=== PATIENT | female | born 1940 | race Caucasian/White ===

== ENCOUNTER → 2018-07-27 10:35 | Outpatient (CLI) | payer MEDICARE, SELFPAY ==
--- NOTE | 2018-07-27 10:39 | BI_ITS ---
MAMMOGRAPHY - BILATERAL SCREENING REASON FOR EXAM: Female, 77 years old. Routine annual screening examination. PERTINENT HISTORY: Non-contributory. Remote right excisional breast biopsy. TECHNIQUE: Digital bilateral breast imani (3D mammographic acquisition) in the CC and MLO projections. 2-D mediolateral oblique (MLO) and craniocaudad (CC) views of both breasts were obtained. CAD: Full Field Digital Mammography with Computer Added Detection was performed. COMPARISON: Comparison is made with prior arthritic examination dated September 01, 2015. FINDINGS: Breast Composition: The breasts are almost entirely fatty. There are no dominant masses or suspicious calcifications. No other significant abnormalities are identified. There has been no significant change since the prior study. BI/SCREENING MAMM (CAD), BILAT IMPRESSION: Stable bilateral screening mammogram. Yearly follow-up mammogram recommended. (A) ASSESSMENT CATEGORY: BIRADS Category 1: Negative. A letter regarding these results will be sent to the patient by the facility within 30 days. Approximately 10% of breast cancers are not detected by mammography. A normal mammogram should not delay biopsy of a clinically suspicious abnormality. [id number] Electronically Signed: Damian Tracy MD at 8:11 EDT Tel [phone], Service support ,
== END ==
PROVIDERS: Family Provider Family Medicine; PCP Family Medicine; Visit Provider Family Medicine
DX: Z12.31 Encounter for screening mammogram for malignant neoplasm of breast (principal)
CPT/HCPCS: 77063; 77067

== ENCOUNTER 2018-10-24 11:00 | Outpatient (RCR) | payer MEDICARE, SELFPAY ==
--- NOTE | 2018-09-20 10:57 | HP.PTEVAL ---
Patient's Visit Information ZIGGY DE SOUZA is a 77 year old F referred to Physical Therapy by LOLIS COOK with a diagnosis of L45 SPONDYLOLISTHESIS. 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 Date of Evaluation: 09/20/18 Physical Therapist: Vernell Austin - Visit Plan Frequency: 2-3x /Week Duration: 4-6 Weeks Plan: AQUATIC THERAPY FOR PAIN RELEIF, POSTURE CORRECTION/STRENGTHENING, INSTRUCTION IN APPROPRIATE BODY MECHANICS AND ACTIVITY MODIFICATIONS. DLS STARTING WITH A NEUTRAL SPINE PROGRESSING ROM TOLERATED. TANVIR LE ROM, STRETCHING AND STRENGTHENING. HEP INSTRUCTION. - Subjective Subjective: Work/Leisure: RETIRED. [employer]. LIKES TO READ. Disability: NO. Present symptoms: CENTRAL LOW BACK PAIN. TANVIR THIGH PAIN. Present since: YEARS. PROGRESSIVELY INCREASING PAIN SINCE MOVING TO [employer] ABOUT 3 YEARS AGO AND RETIRED AT SAME TIME. Pain Scale: WORSE 8/10, LEAST 0/10. Currently: 0/10. Commenced as a result of: NO APPARENT REASON. Symptoms at onset: LOW BACK. Worse: WALKING, STANDING, HOUSEWORK, LAUNDRY. Better: SITTING, LYING DOWN, MOTRIN. Disturbed sleep: YES. Previous history/Previous treatment: A LITTLE BIT OF PHYSICAL THERAPY GREATER THAN 10 YEARS AGO - HEAT AND ELECTRICAL STIM - HELPED. NO BACK SURGERY. NO RAINA'S. NO CHIROPRACTOR. Coughing/sneezing/straining: NO. Gait: TENDENCY TO WALK FAST BUT THAT HURTS. DISTANCE LIMITED. LEFT KNEE CAUSES LIMP MORE THAN BACK. Difficulty initiating urinatin: NO. Accidents: NO. Unexplained weight loss: NO. Imaging: RECENT LUMBAR X-RAYS SHOWED 2 VERTEBRAE THAT WERE SEPERATED, SPINAL STENOSIS AND OSTEOPOROSIS PER PATIENT REPORT. PMH: HTN, METOBOLIC SYNDROME, DEPRESSION. LEFT KNEE PAIN - CORTISONE SHOT 3 MONTHS AGO. SMOKER - 1/2 TO 1 PACK A DAY. Recent major surgery: GALLBLADDER, SX FOR OBSTRUCTED BOWEL AND HERNIA 2013. PLOF (Prior Level of Function): PATIENT REPORTS HER ABILITY TO WALK HAS DECREASED ABOUT 50% OVER THE LAST 6 TO 12 MONTHS. USE TO BE ABLE TO GET AROUND TO GO TO [employer] MUCH BETTER A YEAR AGO. DIFFICULTY STANDING TO PUT CLOTHES IN CLOSET NOW AND CAN ONLY DO A FEW AT A TIME. OTHER: PATIENT REPORTS SHE IS HERE BECAUSE HER INSURANCE REQUIRES PHYSICAL THERAPY BEFORE THEY WILL APPROVE AN MRI. OTHER: PATIENT REPORTS THE [facility] TOLD HER SHE IS PROBABLY GOING TO NEED AN MRI AND FUSION BUT SHE HAS TO DO PT FIRST. REPORTS SHE HAS AN EX CHAIR AT HOME WITH ARM AND LEG EXERCISES BUT SHE DOESN'T USE IT. - Objective Sitting/Standing Posture: POOR. SLOUCHED POSTURE. FORWARD HEAD. ROUNDED SHOULDERS. Lordosis: REDUCED. Active Correction of posture: WORSE. Other Observations: THIS PATIENT AMBULATES INDEP'LY INTO PT WITHOUT ANY ASSISTIVE DEVICES NEEDING TO SIT DOWN AND REST AFTER APPROX 100 FEET X 2. VERY SOB. Motor deficit: TANVIR LE'S 4/5 WITH MMT'ING WITHIN AVAILABLE ROM. PATIENT IS ABLE TO TOE WALK BUT NOT HEEL WALK. Sensory deficit: TANVIR LE LIGHT TOUCH SENSATION IS INTACT AND SYMMETRICAL. ROM deficit: TIGHT TANVIR GASTROC SOLEUS COMPLEX'S. RIGHT KNEE ROM IN SUPINE IWTH A HEEL SLIDE -15 DEG TO 110 DEG FLEX. LEFT -18 DEG EXT TO 110 DEG FLEX. Reflexes: TANVIR LE'S 2/3. Dural Signs: NEG. Lumbar mvmt loss: flex - MIN. ext - APPEARS TO BE THEODORE DUE TO BALANCE AND TESTING LIITED DUE TO CONTRAINDICATION. R SG - THEODORE. L SG - THEODORE. Core strength: POOR. Palpation: NO ACUTE TENDERNESS WITH PALPATION OF THORACIC, LUMBAR, SACRUM, BUTTOCK OR LATERAL HIP REGIONS. OTHER: PATIENT LOST HER BALANCE SEVERAL TIMES DURING SESSION BUT ABLE TO REGAIN BALANCE INDEP'LY. - Goals Goal 1:: DECREASE C/O LOW BACK AND TANVIR LE SX'S. Goal Time Frame: 4-6 Weeks Goal 2:: IMPROVE PERSONAL CARE, LIFTING, WALKING, STANDING, SLEEP, SOCIAL LIFE, AND HOMEMAKING FUNCTION Goal Time Frame: 4-6 Weeks Goal 3:: INSTRUCT IN PROPHYLAXIS Goal Time Frame: 4-6 Weeks - Rehabilitation Potential Rehabilitation Potential: Fair - Anticipated Interventions Patient/Client Instruction: Educate patient on: Condition, Plan of Care, Risk Factors, Benefits of Fitness Program For the Purpose of:: To improve self management Therapeutic Exercise to Include: Strength training, Body mechanics, Postural training, Flexibilty training, Gait and locomotor training, In an aquatic setting, Passive ROM, Dynamic Lumbar Stabilization For the Purpose of:: To decrease pain, To increase ROM, To improve muscle performance and motor function, To increase tolerance to activity/condition/position, To improve performance and independence with ADL's, To improve ability of physical actions for home/community/work/leisure, To improve gait and locomotor functions Thank you for the opportunity to evaluate your patient. For Medicare and Medicare HMO plans, please review the plan of care and approve it. It will need to be FAXED BACK to us at [phone] for Medicare purposes. Please let me know if there are questions or concerns regarding this plan of care. Physician Signature: Date:
--- NOTE | 2018-10-24 11:57 | HP.PTDCSUM_ITS ---
HP - PT D/C Summary It has been my pleasure to treat ZIGGY DE SOUZA under orders from LOLIS COOK, for the diagnosis of L45 SPONDYLOLISTHESIS. 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 for a total of 7 visit(s). Discharge Date: 10/24/18 Please see the following information for a summary of their discharge status. - Subjective Subjective: PATIENT REPORTS SHE GOT SICK OVER THE WEEKEND WITH SORE THROAT AND FEVER. FEVER SEEMS TO BE GONE AND STARTING TO FEEL BETTER THIS MORNING. PATIENT REPORTS SHE IS SURPRISED SHE IS DOING THIS MUCH BETTER. SHE REPORTS SHE CERTAINLY DID NOT EXPECT TO HAVE THIS MUCH IMPROVEMENT. PATIENT REPORTS SHE IS THRILLED SHE WAS ABLE TO WALK ALL THE WAY BACK WITHOUT STOPPING TODAY. SHE ALSO REPORTS SHE HAS MORE STRENGTH IN HER ARMS AND LEGS ENABLING HER TO STAND AT THE STOVE LONGER AND STRAIGHTER. STATES SHE DOESN'T HAVE TO STOP AND LEAN OVER TO GIVE HER BACK A REST NEAR MUCH. PATIENT REPROTS SHE REALLY DOES NOT WANT TO CONTINUE PT AT THIS TIME DUE TO THE BUSINESS OF OCTOBER (MY SCHEDULE LOOKS CRAZY0 AND UNTIL SHE SEES HER DOCTOR AGAIN AND CAN GET AN MRI AND KNOW WHAT ALL OF HER OPTIONS ARE. SHE REPORTS SHE LIKED THE WATER EX'S WHEN SHE DIDN'T OVER-DO-IT AND SHE IS GOING TO JOIN [employer] AT THE FIRST OF THE YEAR. - Pain LOW BACK Pain Intensity (Out of 10): 5 LE'S Pain Intensity (Out of 10): 3 - Overall Improvement % Improvement: 40 - Objective Objective/Function: GOOD PROGRESS TOWARD ALL GOALS. PATIENT IS A GOOD CANDIDATE TO CONTINUE PT BASED ON PROGRESS MADE AND ROOM FOR FUTHER IMPROVEMENT BUT SHE IS DECLINING AT THIS TIME DUE TO HER SCHEDULE. SHE IS DEMONSTRATING IMPROVED GAIT, IMPROVED BALANCE AND IMPROVED ROM AND STRENGTH IN HER LE'S. POOR STRENGTH IS STILL POOR. UPON EXAM: THIS PATIENT AMBULATES INDEP'LY INTO PT WITH A STRAIGHT CANE X > 300 FEET WITH MILD SOB BUT NO REST PERIODS. Motor deficit: TANVIR LE'S 4- 5/5 WITH MMT'ING WITHIN AVAILABLE ROM. PATIENT IS ABLE TO TOE WALK AND EVEN HEEL WALK TODAY WITHOUT UE ASSIST. Sensory deficit: TANVIR LE LIGHT TOUCH SENSATION IS INTACT AND SYMMETRICAL. ROM deficit: TIGHT TANVIR GASTROC SOLEUS COMPLEX'S. RIGHT KNEE ROM IN SUPINE WITH A HEEL SLIDE = FULL EXT TO 119 DEG FLEX. LEFT FULL EXT TO 112 DEG FLEX. Reflexes: TANVIR LE'S 2/3. Dural Signs: NEG. Lumbar mvmt loss: flex - MIN. ext - NT. R SG - MOD TO THEODORE. L SG - THEODORE. PATIENT DENIES INCREASED PAIN WITH TESTING. Core strength: POOR. Palpation: NO ACUTE TENDERNESS WITH PALPATION OF THORACIC, LUMBAR, SACRUM, BUTTOCK OR LATERAL HIP REGIONS BUT LEFT KNEE IS TENDER. OTHER: NO LOSS OF BALANCE DURING SESSION TODAY. ABLE TO TRANSFER INDEP'LY SIT TO STAND WITHOUT UE ASSIST TODAY. PATIENT WAS CONFUSED ABOUT WHAT SHE COULD DO WITH HER [employer] BUT UNDERSTANDS BETTER NOW. THIS PT DOES NOT RECOMMEND USE OF MACHINES ON THE FLOOR AT THIS TIME. - Goals Goal 1:: DECREASE C/O LOW BACK AND TANVIR LE SX'S. Goal Progress: Progressing Goal 2:: IMPROVE PERSONAL CARE, LIFTING, WALKING, STANDING, SLEEP, SOCIAL LIFE, AND HOMEMAKING FUNCTION Goal Progress: Progressing Goal 3:: INSTRUCT IN PROPHYLAXIS Goal Progress: Progressing - Plan Plan: D/C AT PATIENTS REQUEST. - D/C Information If there are questions or concerns regarding this patient's physical therapy, please feel free to call me at [phone]. Thank you for the referral of this patient. Sincerely, Vernell Austin
== END 2018-10-24 19:00 | disposition home or self-care (01) ==
LOC: PT 11:00
PROVIDERS: Family Provider Family Medicine; PCP Family Medicine
DX: M43.16 Spondylolisthesis, lumbar region (principal); M41.56 Other secondary scoliosis, lumbar region
CPT/HCPCS: 97113; 97116; 97162; 97530

== ENCOUNTER → 2018-12-15 09:26 | Outpatient (CLI) | payer MEDICARE, SELFPAY ==
--- NOTE | 2018-12-15 10:00 | MRI_ITS ---
STUDY: MRI LUMBAR SPINE WITHOUT CONTRAST REASON FOR EXAM: Female, 77 years old. DDD, C/O LOW BACK PIAN X 3 YRS, NO RELIEF WITH PT. TECHNIQUE: Standardized fat and water weighted pulse sequences were obtained in the sagittal and axial planes. COMPARISON: None FINDINGS: T12-L1: There is mild disc space narrowing and endplate spondylosis. There is no significant disc herniation, central canal or foraminal stenosis. Normal lumbar lordosis. There is moderate dextroscoliosis Normal conus medullaris that terminates at the L1 L1-2: There is mild disc space narrowing and endplate spondylosis. There is no significant disc herniation, central canal or foraminal stenosis. L2-3: There is moderate disc space narrowing and endplates spondylosis. There is a mild disc bulge without significant central canal or foraminal stenosis L3-4: There is severe disc space narrowing and endplates spondylosis. There is a moderate disc bulge and facet arthropathy asymmetric to the left with severe left foraminal stenosis. There is mild central canal and right foraminal stenosis. L4-5: There is mild disc space narrowing and endplates spondylosis. There is extensive facet arthropathy with grade 1 at anterolisthesis and mild disc bulging with severe central canal stenosis. There is mild right and moderate left foraminal stenosis L5-S1: There is moderate disc space narrowing and endplates spondylosis. There is some mild disc osteophyte complex and facet arthropathy is symmetric to the right with moderate right foraminal stenosis. There is small central protrusion with mild right lateral recess narrowing. There is no significant central canal or left tonsils. Normal visualized sacral ala. Normal visualized paraspinous soft tissue structures. MRI/Spine Lumbar (Routine) IMPRESSION: L3/L4: Severe left foraminal stenosis. L4/L5: Severe facet arthropathy with grade 1 anterolisthesis. Severe central canal stenosis. Moderate left foraminal stenosis. L5/S1: Moderate right foraminal stenosis. Electronically Signed: Bee Collado MD at 11:23 EST Tel , Service support ,
== END ==
PROVIDERS: Family Provider Family Medicine; PCP Family Medicine; Referring Provider Nurse Practitioner; Visit Provider Nurse Practitioner
DX: M43.16 Spondylolisthesis, lumbar region (principal); M51.36 Other intervertebral disc degeneration, lumbar region
CPT/HCPCS: 72148

== ENCOUNTER → 2020-04-29 09:07 | Outpatient (CLI) | payer MEDICARE, SELFPAY ==
[2020-04-29 10:44] LABS: ALB/GLOB Ratio 0.6 RATIO (0.9-2.4); AST(SGOT) 4 U/L (15-37); Alanine Aminotransfer ALT/SGPT 9 U/L (13-56); Albumin, Serum 2.7 g/dL (3.2-5.0); Alkaline Phosphatase 144 U/L (45-117); Anion Gap 9 (5-15); BUN 20 mg/dL (7-18); BUN/Creat Ratio 14.6 RATIO (10-20); Calcium,Total 7.7 mg/dL (8.5-10.1); Chloride 91 mmol/L (98-107); Cholesterol 168 mg/dL (200); Creatinine, Serum 1.37 mg/dL (0.55-1.02); EST Glomerular Filtration Rate 40 mL/min (>60); Est Glom Filt Rate - Afr Amer 48 mL/min (>60); Globulin 4.3 g/dL (2.2-4.2); Glucose 244 mg/dL (74-106); High Density Lipoprotein 30 mg/dL; Potassium 2.1 mmol/L (3.5-5.1); Sodium Level 133 mmol/L (136-145); Thyroid Stim Hormone (TSH) 1.31 uIU/mL (0.358-3.74); Triglycerides 247 mg/dL; Very Low Density Lipoprotein 49 mg/dL (5-40)
== END ==
PROVIDERS: PCP Family Medicine; Referring Provider Family Medicine; Visit Provider Family Medicine
DX: E78.00 Pure hypercholesterolemia, unspecified (principal); I10 Essential (primary) hypertension; E04.1 Nontoxic single thyroid nodule
CPT/HCPCS: 36415; 80053; 80061; 84443

== ENCOUNTER 2020-04-29 11:40 | Observation (INO) | payer MEDICARE, SELFPAY ==
[2020-04-29] VITALS (7 sets, daily range): BP systolic 131–182; BP diastolic 46–78; PULSE 71–89; RESP 16–20; TEMP 36.4–37.1; O2SAT 94–99; BMI 41.5; BMI 34.7; BMI 41.6
--- NOTE | 2020-04-29 12:07 | ED.DCSUM_ITS ---
History of Present Illness Chief Complaint: Abn Labs Informant: Patient, Family Onset: Today Associated Symptoms: Patient denies any symptoms Narrative: Son assists in history, stating that she was scheduled for a routine appointment later this week with her PCP, and before the appointment had the routine blood work drawn today, and it showed very low potassium level. She was sent in to the ER for that reason and to have her magnesium checked as well. She states she has been doing fine, gets around with a cane, and gets around with it as usual. Son states that she seems to have had a more difficult time than usual getting around with it lately. She is on lisinopril/HCTZ as her only diuretic. - Past Medical History (1) Hypertension Status: Chronic (2) Metabolic syndrome Status: Chronic Past Medical History - Allergies and Home Meds Allergies/Adverse Reactions: Allergies No Known Allergies Allergy (Verified 04/29/20 11:43) Primary Care Physician: Carlos Burch MD [Primary Care Provider] - Lives: Alone Drugs: None Review of Systems General: Denies: Chills, Fever, Malaise, Sweats Eyes: Denies: Visual changes - bilaterally, Diplopia ENT: Denies: Rhinorrhea, Sore throat Cardiovascular: Denies: Chest pain, Palpitations Respiratory: Denies: Dyspnea, Cough, Dyspnea on exertion Gastrointestinal: Denies: Abdominal pain, Nausea, Vomiting, Diarrhea, Melena, Hematochezia Genitourinary: Denies: Dysuria, Hematuria, Frequency Musculoskeletal: Denies: Neck pain, Swelling, Extremity Pain Skin: Denies: Rash, Wounds Neurological: Denies: Headache, Weakness, Numbness Physical Exam Vital Signs/Narrative: Vital Signs Temp Pulse Resp BP Pulse Ox 04/29/20 11:41 98.2 F 89 20 H 131/58 H 99 Inital Vital Signs reviewed: Yes General: Well nourished, Well developed, No Acute Distress Head: Normocephalic, Atraumatic Eyes: Perrl, EOMI ENT: Moist mucous membranes, No rhinorrhea Neck: Supple, Nontender, No JVD Cardiovascular: Regular rate, Regular rhythm, No murmurs Respiratory: No distress, CTA bilaterally, Chest nontender Abdomen: Soft, Nontender, Nondistended, Normal bowel sounds Back: Nontender, Normal Inspection Extremities: Nontender, No edema. Negative for: Calf Tenderness Skin: Normal color, No rash, No Trauma Neurological: Alert, Oriented x3, Cranial nerves II-XII grossly intact, Normal Strength, Normal Sensation Psychological: Normal affect, Normal Mood Diagnostic/Tx/Re-eval Laboratory Tests 04/29/20 Range/Units 12:10 Sodium 131 L (136-145) mmol/L Potassium 2.1 L* (3.5-5.1) mmol/L Chloride 90 L (98-107) mmol/L Carbon Dioxide 31.0 (21.0-32.0) mmol/L Anion Gap 10 (5-15) BUN 21 H (7-18) mg/dL Creatinine 1.50 H (0.55-1.02) mg/dL Estim Creat Clear Calc 23.32 ml/min Est GFR (MDRD) Af Amer 43 L (>60) mL/min Est GFR (MDRD) Non-Af 36 L (>60) mL/min BUN/Creatinine Ratio 14.0 (10-20) RATIO Glucose 346 H (74-106) mg/dL Calcium 7.4 L (8.5-10.1) mg/dL Magnesium 1.0 L (1.6-2.6) mg/dL - Medical Decision Making Start giving IV potassium to this patient, however her magnesium is extremely low at 1.0 which will also need replaced. She is not extremely symptomatic, however I think she needs more potassium and magnesium than can be given in a timely fashion here in the ER. Therefore plan is for inpatient observation for continued treatment. Discussed with Dr. Burch which is what he prefers prior to seeing her as an outpatient in a couple days. Also, I discussed with him the high blood sugar at 346. His charts do not indicate a history of diabetes although she is on metformin for metabolic syndrome. ED Disposition - Plan for ED Patient: Disposition: Acute Care Hospital [facility] Diagnosis: Hypokalemia, Hypomagnesemia, Renal insufficiency, Hyperglycemia Referrals: Carlos Burch MD [Primary Care Provider] -
[2020-04-29 12:46] LABS: BUN 21 mg/dL (7-18); Estimated Creatinine Clearance 23.32 ml/min; Glucose 346 mg/dL (74-106)
[2020-04-29 12:47] LABS: Anion Gap 10 (5-15); Calcium,Total 7.4 mg/dL (8.5-10.1); Chloride 90 mmol/L (98-107); EST Glomerular Filtration Rate 36 mL/min (>60); Est Glom Filt Rate - Afr Amer 43 mL/min (>60); Potassium 2.1 mmol/L (3.5-5.1); Sodium Level 131 mmol/L (136-145)
[2020-04-29] MEDS: Potassium Chloride 10mEq/100mL 10 MEQ/100 ML IV.SOLN. 100 MEQ IV BOLUS ×7 (12:55→23:28)
--- NOTE | 2020-04-29 13:05 | EKG12_ITS ---
Test Reason : ABNL LABS Blood Pressure : / mmHG Vent. Rate : 074 BPM Atrial Rate : 074 BPM P-R Int : 172 ms QRS Dur : 086 ms QT Int : 468 ms P-R-T Axes : 040 041 137 degrees QTc Int : 519 ms Normal sinus rhythm ST & T wave abnormality, consider anterolateral ischemia Prolonged QT Abnormal ECG Confirmed by GEORGETTE ALCAZAR ([id number]), rewrite editor WINTER CRENSHAW ([id number]) on 05/01/2020 7:39:06 AM Referred By: NIKKI Confirmed By:GEORGETTE ALCAZAR
--- NOTE | 2020-04-29 13:12 | NURSING ---
NO OLD EKGS
--- NOTE | 2020-04-29 13:20 | HP.PCM_ITS ---
History of Present Illness Date of Admission: 04/29/20 Chief Complaint: abnormal labs The patient is a 79 year old F with a past medical history as outlined was admitted through the ED on 04/29/2020 with a complaint of abnormal labs. Patient had been getting her routine screening labs prior to visit with her PCP on , 05/01/2020. Labs done showed low potassium of 2.1 and low magnesium of 1; patient was therefore referred to the ED. Patient feels absolutely well and has no complaints. She denies any fever or chills, nausea or vomiting. She admits to use some loose stools but denies the actually diarrhea and think she has not been eating bad well though she drinks lots of fluids. She is not on furosemide but does take hydrochlorothiazide. SHe denies ever being on potassium supplements. In the ED, vitals were stable with temperature of 98.2 Fahrenheit, blood pressure of 131/58 and pulse rate of 89 as well as respiratory of 20. She was saturating at 99% on room air. Chemistry showed sodium of 131 with potassium of 2.1 and chloride of 90. Creatinine is 1.5 and glucose was 346 with calcium was 7.4 and magnesium of 1. She has been admitted to manage for hypo-kalemia, hypomagnesemia and ROSA MARIA. Past Medical History Past Medical History (Chronic Problems): Chronic Problems Hypertension (Chronic) Metabolic syndrome (Chronic) Allergies No Known Allergies Allergy (Verified 04/29/20 11:43) Home Medications: Ambulatory Orders Medication Instructions Recorded Hydrochlorothiazide [Hctz] 25 mg PO DAILY 04/29/20 Metformin HCl 500 mg PO BID 04/29/20 Venlafaxine XR [Effexor Xr] 75 mg PO DAILY 04/29/20 Surgical History: no surgical history Psychiatric History: No pertinent psych hx OYSTERMAN History: No pertinent OYSTERMAN history Lives: Alone Smoking Status: Heavy Smoker (>10/day) Tobacco Use: Cigarettes Alcohol: None Drugs: None - *Family History Maternal History Items: No pertinent history Review of Systems Constitutional: Denies: Chills, Fever, Malaise, Weakness, Weight Change Eyes: Denies: Blurred vision HEENT: Denies: Head Aches, Sinus Congestion, Sinus Drainage Cardiovascular: Denies: Chest Pain, Chest Tightness, Edema, Heaviness, Light Headedness, Orthopnea, Palpitations, Paroxysmal Noc. Dyspnea, Syncope Respiratory: Denies: Cough, Shortness of Breath, Shortness of breath at rest, Shortness of breath upon exertion, Sputum production Gastrointestinal: Denies: Abdominal Pain, Nausea, Vomiting Genitourinary: Denies: Dysuria Musculoskeletal: Denies: Joint Pain, Joint Tenderness Skin: Denies: Rash, Wounds Neurological: Denies: Numbness, Tingling, Focal weakness Psychiatric: Denies: Anxiety, Depression, Homicidal Ideations, Suicidal Ideations Hematologic/ Lymphatic: Denies: Easy Bruising, Easy Bleeding VTE Information - Inpt Only VTE Present on Admission: No VTE Pharm Prophylaxis ordered?: Yes Patient Problems: Active and Suspected Problems Hypokalemia (Acute) Hypomagnesemia (Acute) Renal insufficiency (Acute) Hyperglycemia (Acute) - Physical Exam Vitals/I&O's: Vital Signs Temp Pulse Resp BP Pulse Ox 98.2 F 89 20 H 131/58 H 99 04/29/20 11:41 04/29/20 11:41 04/29/20 11:41 04/29/20 11:41 04/29/20 11:41 Oxygen Delivery Method Room Air Weight: 220 lb Body Mass Index (BMI) 41.5 General: Alert, Oriented x3, Cooperative, No apparent distress HEENT: Atraumatic, PERRLA, EOMI, Normocephalic Oral: Moist Mucosa Neck: Supple, No JVD, Negative Carotid Bruits Lungs: Clear to auscultation, Normal air movement, No rhonchi, No wheeze, No rales Cardiovascular: Regular rate, Regular Rhythm, Normal S1, Normal S2, No murmurs Abdomen: Bowel Sounds Present, Soft, Non Tender, Non-Distended, No Hepato- splenomegaly Extremities: No clubbing, No cyanosis, No edema, Capillary Refill Less than 3 Seconds Skin: No rashes, No breakdown Musculoskeletal: No Tenderness to Palpation of Joints or Extremities Lymphatic: No Cervical, Supraclavicular, or Inguinal Adenopathy Neurological: Cranial nerves II-XII grossly intact, Neuro grossly intact, Motor Exam 5/5 strength throughout Psych/Mental Status: Normal Affect, Appropriate, Alert and oriented to time, place, person, mood and affect Laboratory Results 04/29/20 12:10: Sodium 131 L, Potassium 2.1 L*, Chloride 90 L, Carbon Dioxide 31.0, Anion Gap 10, BUN 21 H, Creatinine 1.50 H, Estim Creat Clear Calc 23.32, Est GFR (MDRD) Af Amer 43 L, Est GFR (MDRD) Non-Af 36 L, BUN/Creatinine Ratio 14.0, Glucose 346 H, Calcium 7.4 L, Magnesium 1.0 L Current Medications Potassium Chloride () 10 meq in 100 mls @ 100 mls/hr IV BOLUS Q1H SCOOBY Stop: 04/29/20 14:14 Last Admin: 04/29/20 12:55 Dose: 100 mls/hr Documented by: Assessment/Plan All Active Problems Hypokalemia (Acute) Hypomagnesemia (Acute) Renal insufficiency (Acute) Hyperglycemia (Acute) 79-year-old admitted with complaint of abnormal labs. 1. Hypokalemia and hypomagnesemia * Potassium is 2.1 and magnesium is 1. * Has been on hydrochlorothiazide which could be the cause of the low potassium. Denies any history of alcohol abuse. Admits to not eating well recently. Admit to PCU with telemetry. * Replace potassium aggressively also replace magnesium aggressively. * Will potassium and magnesium. * DC hydrochlorothiazide. * 2. Hyperglycemia: * Blood sugar is 346. Last A1c done in records is in 2016 which was 6.8 and therefore patient was diabetic even then. * Will check A1c now. On metformin. Will continue. Insulin sliding scale. Accu-Cheks AC at bedtime. * 3. Hyponatremia: Sodium is 131. Patient looks euvolemic. This is chronic as back in 2016 sodium was 132. Will monitor. 4. Hypocalcemia: Calcium is 7.4. Will check albumin and correct albumin and replace with calcium. DVT prophylaxis: Lovenox CODE STATUS: Full code * Patient counseled extensively about different types of CODE STATUS including full code, DNR CCA and DNR CCA. Patient elects to be full code. * Total [id number] time 17 minutes. * * OBSV E&M: [id number] Initial observation care L2 Procedures: 64047 Advncd Care Plan 30 Min
--- NOTE | 2020-04-29 14:00 | NURSING ---
106 HYPOKALEMIA, HYPOMAGNESEMIA HERMINIO
--- NOTE | 2020-04-29 16:04 | PCM.NTREPORT ---
Nutrition Therapy Report - History Nutrition Services has been consulted to:: Manage nutrient details of diet order, Conduct nutrition education Current diet / nutrition support order:: cardiac, 1800 calorie controlled - Anthropometric Measurements Height:: 5 ft 1 in Weight:: 83.4 kg Body Mass Index (BMI):: 34.7 - Relevant Labs Relevant Labs:: Sodium 131 mmol/L (136-145) L 04/29/20 12:10 Potassium 2.1 mmol/L (3.5-5.1) L* 04/29/20 12:10 Chloride 90 mmol/L (98-107) L 04/29/20 12:10 BUN 21 mg/dL (7-18) H 04/29/20 12:10 Creatinine 1.50 mg/dL (0.55-1.02) H 04/29/20 12:10 Est GFR (MDRD) Af Amer 43 mL/min (>60) L 04/29/20 12:10 Est GFR (MDRD) Non-Af 36 mL/min (>60) L 04/29/20 12:10 Glucose 346 mg/dL (74-106) H 04/29/20 12:10 Calcium 7.4 mg/dL (8.5-10.1) L 04/29/20 12:10 Magnesium 1.0 mg/dL (1.6-2.6) L 04/29/20 12:10 - Assessment Food / Nutrition-Related History:: Pt reports decreased appetite/intake since the virus started. Asked pt to clarify- she states she has not ate much since January 2020 when governor issued stay at home orders. Pt states she was still going to the grocery store and denies food insecurity, just states she didn't feel like eating. Pt reports consuming mostly crackers, soups, string cheese, and macaroni. Pt states she stopped taking her metformin during this time. Reports UBW as 220# and CBW 183.9#- 16% wt loss. Pt unsure of exact timeframe of wt loss but believes it was less than 1 year ago. Was not SMBG- denies hx of DM despite being on metformin. Intake this admission to be established. - Nutrition Diagnosis Problem / Etiology / Signs & Symptoms (PES):: Severe malnutrition in context of social/behavioral/environmental circumstances related to COVID-19 pandemic as evidenced by estimated oral intake < 75% of estimated needs >3 months, 36.1#/16% wt loss Evidence of Malnutrition Exists:: Yes Severe PCM:: Social & Environmental circumstances - Nutrition Intervention Nutrition Prescription:: [id number] calories/day, 66-76 g protein/day - Food / Nutrient Delivery Interventions Summary of nutrition intervention:: Wt loss and poor PO intake significant for severe malnutrition. At this time, unable to identify medical condition that would contribute to malnutrition; likely in context of social/environmental circumstances. However, if pt not taking metformin, hyperglycemia may have contributed to wt loss. No A1C available at time of assessment. Nutrition support ordered as / adjusted to:: continue cardiac, 1800 calorie controlled diet; glucerna 120mL 4x/day Nutrition education provided?: No - declines at this time; will await A1C results - MNT Monitoring Further MNT monitoring and evaluation required?: Yes MNT Follow-up in:: 1-2 days
[2020-04-29] MEDS: Insulin Lispro 100 UNIT/ML INSULN.PEN SC ×2 (16:14→21:55)
[2020-04-29 16:30] LABS: Bedside Glucose 246 mg/dL (70-110)
[2020-04-29] MEDS: Magnesium Sulfate 4gm/100mL 4 GM/100 ML IV.SOLN. IV (17:12)
[2020-04-29] MEDS: 0.9% Saline Lock 10 ML Syringe IV (17:15)
[2020-04-29 21:44] LABS: Anion Gap 8 (5-15); BUN 19 mg/dL (7-18); Calcium,Total 7.5 mg/dL (8.5-10.1); Chloride 97 mmol/L (98-107); Creatinine, Serum 1.12 mg/dL (0.55-1.02); EST Glomerular Filtration Rate 50 mL/min (>60); Est Glom Filt Rate - Afr Amer 61 mL/min (>60); Estimated Creatinine Clearance 31.24 ml/min; Glucose 248 mg/dL (74-106); Magnesium 2.3 mg/dL (1.6-2.6); Potassium 2.7 mmol/L (3.5-5.1); Sodium Level 136 mmol/L (136-145)
[2020-04-29 23:04] LABS: Potassium 2.5 mmol/L (3.5-5.1)
[2020-04-29 23:25] LABS: Bedside Glucose 233 mg/dL (70-110)
[2020-04-30] VITALS (18 sets, daily range): BP systolic 155–177; BP diastolic 40–60; PULSE 73–92; RESP 16–18; TEMP 36.3–37.3; O2SAT 94–100
[2020-04-30] MEDS: Potassium Chloride 10mEq/100mL 10 MEQ/100 ML IV.SOLN. 100 MEQ IV BOLUS ×7 (00:46→12:49)
[2020-04-30 05:43] LABS: Absolute Lymphocyte Count 1.22 X10^3/uL (0.83-4.51); Absolute Neutrophil Count 6.9 X10^3/uL (2.0-7.7); Basophil# 0.01 X10^3/uL; Basophil% 0.1 % (0-1); Eosinophil# 0.12 X10^3/uL; Eosinophils% 1.4 % (0-5); Hematocrit 19.7 % (37-47); Hemoglobin 6.4 g/dL (12.0-15.0); Lymphocyte # 1.22 X10^3/ul (4.0); Lymphocyte % 14.2 % (19-41); Mean Corp Hgb Conc 32.5 g/dL (32-36); Mean Corpuscular Hgb 25.7 pg (27.0-32.0); Mean Corpuscular Volume 79.1 fL (81-99); Mean Platelet Vol. 8.8 fl (6.2-12.0); Monocyte# 0.28 X10^3/uL; Monocyte% 3.3 % (0-10); NRBC Flagged by Analyzer 0 % (0-5); Neutrophil # 6.91 X10^3/uL (2.7-7.7); Neutrophil % 80.3 % (47-70); Platelet Count 263 K/mm3 (150-450); RBC Distribution Width CV 14.5 % (11.6-14.6); RBC Distribution Width SD 41.2 fl (35.1-43.9); Red Blood Count 2.49 M/mm3 (4.2-5.4); White Blood Count 8.6 K/mm3 (4.4-11.0)
[2020-04-30 06:19] LABS: ALB/GLOB Ratio 0.6 RATIO (0.9-2.4); AST(SGOT) 7 U/L (15-37); Alanine Aminotransfer ALT/SGPT 7 U/L (13-56); Albumin, Serum 2.4 g/dL (3.2-5.0); Alkaline Phosphatase 120 U/L (45-117); Anion Gap 9 (5-15); BUN 16 mg/dL (7-18); BUN/Creat Ratio 15.1 RATIO (10-20); Calcium,Total 7.2 mg/dL (8.5-10.1); Chloride 98 mmol/L (98-107); Creatinine, Serum 1.06 mg/dL (0.55-1.02); EST Glomerular Filtration Rate 53 mL/min (>60); Est Glom Filt Rate - Afr Amer 64 mL/min (>60); Estimated Creatinine Clearance 33.01 ml/min; Globulin 3.7 g/dL (2.2-4.2); Glucose 200 mg/dL (74-106); Potassium 2.8 mmol/L (3.5-5.1); Protein, Total 6.1 g/dL (6.4-8.2); Sodium Level 136 mmol/L (136-145)
[2020-04-30] MEDS: Insulin Lispro 100 UNIT/ML INSULN.PEN SC ×4 (06:47→21:02)
[2020-04-30 06:55] LABS: Bedside Glucose 198 mg/dL (70-110)
[2020-04-30 07:28] LABS: Hemoglobin A1c 11.5 % (3.8-5.6)
[2020-04-30] MEDS: Venlafaxine XR 75 MG Capsule PO (09:34)
[2020-04-30 11:41] LABS: Bedside Glucose 273 mg/dL (70-110)
--- NOTE | 2020-04-30 11:52 | NURSING ---
Updated patient's son, Matias, on current POC.
--- NOTE | 2020-04-30 13:43 | PN_ITS ---
<Amy Aldana - Last Filed: 04/30/20 13:58> Patient Problems: Active and Suspected Problems Hypokalemia (Acute) Hypomagnesemia (Acute) Renal insufficiency (Acute) Hyperglycemia (Acute) Subjective: Patient seen and examined. Denies nausea, vomiting. Patient reports intermittent loose stools prior to discharge however infrequent. Denies recent illness. Denies current symptoms or complaints. - Physical Exam Vitals/I&O's: Vital Signs Temp Pulse Resp BP Pulse Ox 97.3 F L 81 18 155/48 H 100 04/30/20 09:29 04/30/20 11:03 04/30/20 09:29 04/30/20 09:29 04/30/20 09:29 Oxygen Delivery Method Room Air Weight: 183 lb 13.848 oz Body Mass Index (BMI) 34.7 Intake and Output for Last 24 Hours 04/28/20 04/29/20 04/30/20 23:59 23:59 23:59 Intake Total 1180 / 1180 1300 / 1300 Balance 1180 / 1180 1300 / 1300 General: Alert, Oriented x3, Cooperative HEENT: Atraumatic, PERRLA, EOMI, Normocephalic Neck: Supple, No JVD, Negative Carotid Bruits Lungs: Clear to auscultation, Normal air movement Cardiovascular: Regular rate, No murmurs Abdomen: Bowel Sounds Present, Soft, Non Tender Extremities: No edema, Capillary Refill Less than 3 Seconds Skin: No rashes, No breakdown Musculoskeletal: No Tenderness to Palpation of Joints or Extremities Neurological: Cranial nerves II-XII grossly intact, Neuro grossly intact Psych/Mental Status: Normal Affect, Appropriate Laboratory Results 04/29/20 16:13: POC Glucose 246 H 04/29/20 21:15: Sodium 136, Potassium 2.7 L*, Chloride 97 L, Carbon Dioxide 31.0, Anion Gap 8, BUN 19 H, Creatinine 1.12 H, Estim Creat Clear Calc 31.24, Est GFR (MDRD) Af Amer 61, Est GFR (MDRD) Non-Af 50 L, BUN/Creatinine Ratio 17.0, Glucose 248 H, Calcium 7.5 L, Magnesium 2.3 04/29/20 21:54: POC Glucose 233 H 04/29/20 22:38: Potassium 2.5 L* 04/30/20 05:30: WBC 8.6, RBC 2.49 L, Hgb 6.4 L, Hct 19.7 L, MCV 79.1 L, MCH 25.7 L, MCHC 32.5, RDW Std Deviation 41.2, RDW Coeff of Germán 14.5, Plt Count 263, MPV 8.8, Immature Gran % (Auto) 0.700, Neut % (Auto) 80.3 H, Lymph % (Auto) 14.2 L, Sac % (Auto) 3.3, Eos % (Auto) 1.4, Baso % (Auto) 0.1, Absolute Neuts (auto) 6.9, Absolute Lymphs (auto) 1.22, Nucleated RBC % 0 04/30/20 05:30: Sodium 136, Potassium 2.8 L, Chloride 98, Carbon Dioxide 29.0, Anion Gap 9, BUN 16, Creatinine 1.06 H, Estim Creat Clear Calc 33.01, Est GFR (MDRD) Af Amer 64, Est GFR (MDRD) Non-Af 53 L, BUN/Creatinine Ratio 15.1, Glucose 200 H, Calcium 7.2 L, Total Bilirubin 0.30, AST 7 L, ALT 7 L, Alkaline Phosphatase 120 H, Total Protein 6.1 L, Albumin 2.4 L, Globulin 3.7, Albumin/Globulin Ratio 0.6 L 04/30/20 05:30: Hemoglobin A1c 11.5 H 04/30/20 05:30: Magnesium 2.0 04/30/20 06:47: POC Glucose 198 H 04/30/20 08:40: Blood Type O POSITIVE, Antibody Screen NEGATIVE, Crossmatch See Detail 04/30/20 10:47: POC Glucose 273 H Current Medications Dextrose (D50w Syringe) 0 gm IV X1 PRN; Protocol PRN Reason: Hypoglycemia Enoxaparin Sodium (Lovenox) 30 mg SC DAILY [facility] Last Admin: 04/30/20 09:34 Dose: Not Given Documented by: Glucagon () 1 mg IM .X1 PRN PRN Reason: Hypoglycemia Sodium Chloride () 250 mls @ 15 mls/hr IV .[id number] PRN PRN Reason: Saline Flush Last Infusion: 04/29/20 17:06 Dose: 0 mls/hr Documented by: Sodium Chloride () 250 mls @ 15 mls/hr IV .[id number] PRN PRN Reason: Additional IVPB Infusion Last Infusion: 04/29/20 17:16 Dose: 0 mls/hr Documented by: Insulin Glargine (Lantus (Bk)) 5 units SC DAILY [facility] Last Admin: 04/30/20 10:50 Dose: 5 u Documented by: Insulin Human Lispro (Humalog Kwikpen ([facility])) 0 unit SC ACHS [facility]; Protocol Last Admin: 04/30/20 10:50 Dose: 6 units Documented by: Nicotine (Nicoderm Cq ([facility])) 21 mg TRANSDERM. DAILY [facility] Last Admin: 04/30/20 09:35 Dose: 21 mg Documented by: Nutritional Formula (Lactose Free) (Glucerna Shake) 120 ml PO 4X/DAY [facility] Last Admin: 04/30/20 09:34 Dose: Not Given Documented by: Ondansetron HCl (Zofran) 4 mg IV Q8H PRN PRN PRN Reason: NAUSEA/VOMITING Sodium Chloride () 10 - 40 ml IV UD PRN PRN Reason: SALINE FLUSH Last Admin: 04/29/20 17:15 Dose: 10 ml Documented by: Venlafaxine HCl (Effexor Xr) 75 mg PO DAILY [facility] Last Admin: 04/30/20 09:34 Dose: 75 mg Documented by: Medical Necessity - Tobacco Use Smoking Status: Heavy Smoker (>10/day) Tobacco Use: Cigarettes Assessment/Plan All Active Problems Hypokalemia (Acute) Hypomagnesemia (Acute) Renal insufficiency (Acute) Hyperglycemia (Acute) 1. Acute anemia-Baseline hemoglobin around 9. Hemoglobin 6.4 this morning. Check iron studies. Check stool for occult blood. 2 units PRBC ordered. Trend H&H. 2. Electrolyte disturbances with hyponatremia, hypocalcemia, hypokalemia, hypomagnesia-replace per protocol. Serial BMP. Unclear etiology. Check TSH. 3. Type 2 diabetes mellitus, uncontrolled-hemoglobin A1c 11.5%. Hold metformin. Accu-Cheks with sliding scale insulin. Initiated on Lantus. 4. Depression-continue venlafaxine regimen. 5. Hypertension-HCTZ held. PRN hydralazine for systolic blood pressure greater than 160. 6. Chronic kidney disease stage III-at baseline, trend BMP. 7. Tobacco dependence- encouraged cessation. Nicotine replacement patch. DVT prophylaxis-Lovenox on hold due to #1, SCDs This patient was seen by KALIE Sánchez under the supervision of Dr. Conti. <Kirstie Conti - Last Filed: 04/30/20 18:40> - Physical Exam Vitals/I&O's: Vital Signs Temp Pulse Resp BP Pulse Ox 98 F 81 18 161/56 H 97 04/30/20 17:57 04/30/20 17:57 04/30/20 17:57 04/30/20 17:57 04/30/20 17:57 Oxygen Delivery Method Room Air Weight: 83.4 kg Body Mass Index (BMI) 34.7 Intake and Output for Last 24 Hours 04/28/20 04/29/20 04/30/20 23:59 23:59 23:59 Intake Total 1180 / 1180 1640 / 1640 Balance 1180 / 1180 1640 / 1640 Laboratory Results 04/29/20 21:15: Sodium 136, Potassium 2.7 L*, Chloride 97 L, Carbon Dioxide 31.0, Anion Gap 8, BUN 19 H, Creatinine 1.12 H, Estim Creat Clear Calc 31.24, Est GFR (MDRD) Af Amer 61, Est GFR (MDRD) Non-Af 50 L, BUN/Creatinine Ratio 17.0, Glucose 248 H, Calcium 7.5 L, Magnesium 2.3 04/29/20 21:54: POC Glucose 233 H 04/29/20 22:38: Potassium 2.5 L* 04/30/20 05:30: WBC 8.6, RBC 2.49 L, Hgb 6.4 L, Hct 19.7 L, MCV 79.1 L, MCH 25.7 L, MCHC 32.5, RDW Std Deviation 41.2, RDW Coeff of Germán 14.5, Plt Count 263, MPV 8.8, Immature Gran % (Auto) 0.700, Neut % (Auto) 80.3 H, Lymph % (Auto) 14.2 L, Sac % (Auto) 3.3, Eos % (Auto) 1.4, Baso % (Auto) 0.1, Absolute Neuts (auto) 6.9, Absolute Lymphs (auto) 1.22, Nucleated RBC % 0 04/30/20 05:30: Sodium 136, Potassium 2.8 L, Chloride 98, Carbon Dioxide 29.0, Anion Gap 9, BUN 16, Creatinine 1.06 H, Estim Creat Clear Calc 33.01, Est GFR (MDRD) Af Amer 64, Est GFR (MDRD) Non-Af 53 L, BUN/Creatinine Ratio 15.1, Glucose 200 H, Calcium 7.2 L, Total Bilirubin 0.30, AST 7 L, ALT 7 L, Alkaline Phosphatase 120 H, Total Protein 6.1 L, Albumin 2.4 L, Globulin 3.7, Albumin/Globulin Ratio 0.6 L 04/30/20 05:30: Hemoglobin A1c 11.5 H 04/30/20 05:30: Magnesium 2.0 04/30/20 05:30: Vitamin B12 Pending 04/30/20 05:30: Iron 85, TIBC 331, Iron Saturation 25.7, Ferritin 197, Folate 3.80, TSH 1.29 04/30/20 06:47: POC Glucose 198 H 04/30/20 08:40: Blood Type O POSITIVE, Antibody Screen NEGATIVE, Crossmatch See Detail 04/30/20 10:47: POC Glucose 273 H 04/30/20 16:33: POC Glucose 176 H Current Medications Dextrose (D50w Syringe) 0 gm IV X1 PRN; Protocol PRN Reason: Hypoglycemia Enoxaparin Sodium (Lovenox) 30 mg SC DAILY [facility] Last Admin: 04/30/20 09:34 Dose: Not Given Documented by: Glucagon () 1 mg IM .X1 PRN PRN Reason: Hypoglycemia Hydralazine HCl (Apresoline Iv) 10 mg IV Q4H PRN PRN PRN Reason: BLOOD PRESSURE Last Admin: 04/30/20 16:05 Dose: 10 mg Documented by: Sodium Chloride () 250 mls @ 15 mls/hr IV .[id number] PRN PRN Reason: Saline Flush Last Infusion: 04/29/20 17:06 Dose: 0 mls/hr Documented by: Sodium Chloride () 250 mls @ 15 mls/hr IV .[id number] PRN PRN Reason: Additional IVPB Infusion Last Infusion: 04/29/20 17:16 Dose: 0 mls/hr Documented by: Insulin Glargine (Lantus ([facility])) 10 units SC DAILY [facility] Insulin Human Lispro (Humalog Kwikpen ([facility])) 0 unit SC ACHS [facility]; Protocol Last Admin: 04/30/20 16:36 Dose: 2 units Documented by: Nicotine (Nicoderm Cq ([facility])) 21 mg TRANSDERM. DAILY [facility] Last Admin: 04/30/20 09:35 Dose: 21 mg Documented by: Nutritional Formula (Lactose Free) (Glucerna Shake) 120 ml PO 4X/DAY [facility] Last Admin: 04/30/20 16:36 Dose: Not Given Documented by: Ondansetron HCl (Zofran) 4 mg IV Q8H PRN PRN PRN Reason: NAUSEA/VOMITING Sodium Chloride () 10 - 40 ml IV UD PRN PRN Reason: SALINE FLUSH Last Admin: 04/30/20 16:06 Dose: 10 ml Documented by: Venlafaxine HCl (Effexor Xr) 75 mg PO DAILY [facility] Last Admin: 04/30/20 09:34 Dose: 75 mg Documented by: Assessment/Plan This patient was seen in conjunction with Amy Aldana NP. I have independently interviewed and examined the patient and reviewed pertinent historical, laboratory, and other data. Please refer to her note for patient's presentation, findings, and recommendations. Patient was seen and examined. Patient admits to loose stools. Denies any headache or dizziness or palpitations. No acute events overnight. Vitals were reviewed -stable Physical Exam: Gen: Looks chronically unwell, pale, not jaundiced, alert oriented x3 CVS:HS I +II, regular, no murmurs RESP: Diminished at lung bases GI: BS present and normal, nontender, no palpable organs EXT:No edema Labs reviewed: ASSESSMENT: 1. Hypokalemia, hypo-magnesium Janel, hypocalcemia, hyponatremia 2. Acute anemia, unclear etiology 3. Type II DM 4. Hypertension 5. CKD stage III 6. Nicotine dependence Meds reviewed Plan: Work-up for anemia 2 units packed RBC transfusion Replace electrolytes Blood work in a.m. Inpatient E&M: 17209 Subs Hosp L2
--- NOTE | 2020-04-30 14:42 | CASEMGMT ---
This RN CM to room with HAGER form at this time, explanation done-pt voices understanding, and signs HAGER form at this time. Original to chart and copy to pt at this time. Pt voice no further questions/concerns/needs at this time. CM/UM to continue to monitor. SStaten TEE CM
[2020-04-30 16:00] LABS: Ferritin 197 ng/mL (8-252); Iron 85 ug/dL (50-170); Iron Binding Capacity,Total 331 ug/dL (250-450); PERCENT IRON SATURATION 25.7 % (15.0-55.0); Thyroid Stim Hormone (TSH) 1.29 uIU/mL (0.358-3.74)
[2020-04-30] MEDS: hydrALAZINE 20 MG/ML Vial 10 MG IV ×2 (16:05→20:55)
[2020-04-30] MEDS: 0.9% Saline Lock 10 ML Syringe IV ×2 (16:06→20:56)
[2020-04-30 17:00] LABS: Bedside Glucose 176 mg/dL (70-110)
[2020-04-30 21:11] LABS: Bedside Glucose 240 mg/dL (70-110)
[2020-04-30 22:16] LABS: Hemoglobin 9.4 g/dL (12.0-15.0)
[2020-04-30 22:57] LABS: Anion Gap 7 (5-15); BUN 15 mg/dL (7-18); BUN/Creat Ratio 14.4 RATIO (10-20); Calcium,Total 7.5 mg/dL (8.5-10.1); Chloride 99 mmol/L (98-107); Creatinine, Serum 1.04 mg/dL (0.55-1.02); EST Glomerular Filtration Rate 54 mL/min (>60); Est Glom Filt Rate - Afr Amer 66 mL/min (>60); Estimated Creatinine Clearance 33.64 ml/min; Glucose 213 mg/dL (74-106); Potassium 3.4 mmol/L (3.5-5.1); Sodium Level 133 mmol/L (136-145)
[2020-05-01] VITALS (7 sets, daily range): BP systolic 158–186; BP diastolic 54–60; PULSE 85–93; RESP 14–16; TEMP 36.9–37.1; O2SAT 94–97
[2020-05-01] MEDS: hydrALAZINE 20 MG/ML Vial 10 MG IV ×2 (02:47→07:33)
[2020-05-01] MEDS: 0.9% Saline Lock 10 ML Syringe IV ×2 (02:47→07:33)
[2020-05-01] MEDS: Insulin Lispro 100 UNIT/ML INSULN.PEN SC ×2 (06:34→11:31)
[2020-05-01 06:48] LABS: Hematocrit 30.6 % (37-47); Mean Corp Hgb Conc 32.7 g/dL (32-36); Mean Corpuscular Hgb 26.1 pg (27.0-32.0); Mean Corpuscular Volume 79.9 fL (81-99); Mean Platelet Vol. 8.4 fl (6.2-12.0); Platelet Count 322 K/mm3 (150-450); RBC Distribution Width CV 14.3 % (11.6-14.6); Red Blood Count 3.83 M/mm3 (4.2-5.4); White Blood Count 12.5 K/mm3 (4.4-11.0)
[2020-05-01 06:55] LABS: Bedside Glucose 202 mg/dL (70-110)
[2020-05-01 07:11] LABS: Anion Gap 7 (5-15); BUN 14 mg/dL (7-18); BUN/Creat Ratio 14.5 RATIO (10-20); Calcium,Total 7.6 mg/dL (8.5-10.1); Chloride 98 mmol/L (98-107); Creatinine, Serum 0.97 mg/dL (0.55-1.02); EST Glomerular Filtration Rate 59 mL/min (>60); Est Glom Filt Rate - Afr Amer 72 mL/min (>60); Estimated Creatinine Clearance 36.07 ml/min; Glucose 207 mg/dL (74-106); Potassium 3.9 mmol/L (3.5-5.1); Sodium Level 133 mmol/L (136-145)
[2020-05-01] MEDS: Venlafaxine XR 75 MG Capsule PO (08:35)
[2020-05-01 09:13] LABS: Vitamin B12 523 pg/mL (211-911)
--- NOTE | 2020-05-01 11:02 | PCM.DC ---
- Discharge Diagnoses Current Active Problems: Current Active and Chronic Problems Hypokalemia (Acute) Hypomagnesemia (Acute) Renal insufficiency (Acute) Hyperglycemia (Acute) You will use the following diet at home:: Calorie/Carbohydrate Controlled (specify 1200, 1400, etc) Discharge Activity: Return to Normal Activity Call your doctor if you observe: Shortness of breath, Dizziness, Fainting spells, Chest pain Allergies/Adverse Reactions: Allergies No Known Allergies Allergy (Verified 04/29/20 11:43) Medications to take at Discharge Metformin HCl 500 mg PO BID 04/29/20 Venlafaxine XR [Effexor Xr] 75 mg PO DAILY 04/29/20 Amlodipine [Norvasc] 10 mg PO DAILY #30 tab 05/01/20 Insulin Glargine [Lantus SoloStar Pen] 10 units SUBCUT DAILY #1 box 05/01/20 The following prescriptions were given: Insulin Glargine [Lantus SoloStar Pen] 10 units SUBCUT DAILY #1 box Transmission Status: Pending to [facility]/pharmacy #[id number] Amlodipine [Norvasc] 10 mg PO DAILY #30 tab Transmission Status: Pending to [facility]/pharmacy #[id number] Primary Care Physician: Carlos Burch MD [Primary Care Provider] - Please follow up with your Primary Care Physician in: 3-5 Days Test Results: Test results from this visit will be discussed in further detail at your follow-up appointment, if applicable. Proposed Discharge Date: 05/01/20
--- NOTE | 2020-05-01 11:07 | PCM.DC.SUM ---
<Amy Aldana - Last Filed: 05/01/20 11:14> Discharge Date and Diagnosis Date of Admission: 04/29/20 Date of Discharge: 05/01/20 - Primary Discharge Diagnosis Acute Problems: Active Problems 1. Acute on chronic microcytic anemia 2. Electrolyte disturbances with hyponatremia, hypocalcemia, hypokalemia, hypomagnesia 3. Type 2 diabetes mellitus, uncontrolled 4. Depression 5. Hypertension 6. Chronic kidney disease stage III 7. Tobacco dependence - Secondary Discharge Diagnosis Chronic Problems: Chronic Problems Hypertension (Chronic) Metabolic syndrome (Chronic) Hospital Course and Treatment Operations: None Procedures: None Summary of Care Provided: The patient is a 79 year old F admitted 04/29/2020 due to abnormal labs. 1. Acute on chronic microcytic anemia-Baseline hemoglobin around 9. Patient received 2 units PRBC for hemoglobin 6.4. Iron studies normal. Stool for occult blood negative. Repeat H&H 10. Unclear etiology for acute anemia. Recommend repeat CBC in 3 to 5 days by primary care provider and follow-up for routine colonoscopy/GI evaluation given patient report of ongoing intermittent loose stool. 2. Electrolyte disturbances with hyponatremia, hypocalcemia, hypokalemia, hypomagnesia-HCTZ discontinued. Electrolytes replaced per protocol and stable at discharge. TSH normal. Recommend repeat BMP by primary care provider in 3 to 5 days. 3. Type 2 diabetes mellitus, uncontrolled-hemoglobin A1c 11.5%. Patient states she has not been taking her metformin. Continue home metformin regimen. Initiated on Lantus 10 units daily with further outpatient titration to reach goal A1c. Glucometer and testing supplies prescription given to patient and she was instructed to check her blood glucose twice daily. 4. Depression-continue venlafaxine regimen. 5. Hypertension-HCTZ discontinued. Initiated on amlodipine 10 mg daily. Instructed patient to continue blood pressure monitoring at home and report findings to PCP. 6. Chronic kidney disease stage III-at baseline. 7. Tobacco dependence- encouraged cessation. General: Alert, Oriented x3, Cooperative HEENT: Atraumatic, PERRLA, EOMI, Normocephalic Neck: Supple, No JVD, Negative Carotid Bruits Lungs: Clear to auscultation, Normal air movement Cardiovascular: Regular rate, No murmurs Abdomen: Bowel Sounds Present, Soft, Non Tender Extremities: No edema, Capillary Refill Less than 3 Seconds Skin: No rashes, No breakdown Musculoskeletal: No Tenderness to Palpation of Joints or Extremities Neurological: Cranial nerves II-XII grossly intact, Neuro grossly intact Psych/Mental Status: Normal Affect, Appropriate Patient seen and examined prior to discharge. Physical assessment as noted above. Patient is stable for discharge with follow up recommendations as noted above. This patient was seen by KALIE Sánchez under the supervision of Dr. Conti. - Physical Exam Vitals/I&O's: Vital Signs Temp Pulse Resp BP Pulse Ox 98.8 F 85 14 158/54 H 97 05/01/20 08:29 05/01/20 08:29 05/01/20 08:29 05/01/20 08:29 05/01/20 08:29 Oxygen Delivery Method Room Air Weight: 183 lb 13.848 oz Body Mass Index (BMI) 34.7 Intake and Output for Last 24 Hours 04/29/20 04/30/20 05/01/20 23:59 23:59 23:59 Intake Total 1180 / 1180 1740 / 1740 150 / 150 Balance 1180 / 1180 1740 / 1740 150 / 150 Microbiology Past 72 Hours 05/01/20 06:30 Stool Stool Occult Blood (SHALINI) - Final Laboratory Results 04/30/20 05:30: Iron 85, TIBC 331, Iron Saturation 25.7, Ferritin 197, Folate 3.80, TSH 1.29 04/30/20 08:40: Blood Type O POSITIVE, Antibody Screen NEGATIVE, Crossmatch See Detail 04/30/20 10:47: POC Glucose 273 H 04/30/20 16:33: POC Glucose 176 H 04/30/20 21:02: POC Glucose 240 H 04/30/20 22:10: Hgb 9.4 L, Hct 29.0 L 04/30/20 22:10: Sodium 133 L, Potassium 3.4 L, Chloride 99, Carbon Dioxide 27.0, Anion Gap 7, BUN 15, Creatinine 1.04 H, Estim Creat Clear Calc 33.64, Est GFR (MDRD) Af Amer 66, Est GFR (MDRD) Non-Af 54 L, BUN/Creatinine Ratio 14.4, Glucose 213 H, Calcium 7.5 L 04/30/20 22:10: Vit D 1,25-Dihydroxy Pending 05/01/20 06:31: POC Glucose 202 H 05/01/20 06:40: Vitamin B12 523 05/01/20 06:40: WBC 12.5 H, RBC 3.83 L, Hgb 10.0 L, Hct 30.6 L, MCV 79.9 L, MCH 26.1 L, MCHC 32.7, RDW Std Deviation 41.0, RDW Coeff of Germán 14.3, Plt Count 322, MPV 8.4 05/01/20 06:40: Sodium 133 L, Potassium 3.9, Chloride 98, Carbon Dioxide 28.0, Anion Gap 7, BUN 14, Creatinine 0.97, Estim Creat Clear Calc 36.07, Est GFR (MDRD) Af Amer 72, Est GFR (MDRD) Non-Af 59 L, BUN/Creatinine Ratio 14.5, Glucose 207 H, Calcium 7.6 L Current Medications Amlodipine Besylate (Norvasc) 10 mg PO DAILY [facility] Dextrose (D50w Syringe) 0 gm IV X1 PRN; Protocol PRN Reason: Hypoglycemia Enoxaparin Sodium (Lovenox) 30 mg SC DAILY [facility] Last Admin: 04/30/20 09:34 Dose: Not Given Documented by: Glucagon () 1 mg IM .X1 PRN PRN Reason: Hypoglycemia Hydralazine HCl (Apresoline Iv) 10 mg IV Q4H PRN PRN PRN Reason: BLOOD PRESSURE Last Admin: 05/01/20 07:33 Dose: 10 mg Documented by: Sodium Chloride () 250 mls @ 15 mls/hr IV .[id number] PRN PRN Reason: Saline Flush Last Infusion: 04/29/20 17:06 Dose: 0 mls/hr Documented by: Sodium Chloride () 250 mls @ 15 mls/hr IV .[id number] PRN PRN Reason: Additional IVPB Infusion Last Infusion: 04/29/20 17:16 Dose: 0 mls/hr Documented by: Insulin Glargine (Lantus (Bkc)) 10 units SC DAILY [facility] Last Admin: 05/01/20 08:40 Dose: 10 units Documented by: Insulin Human Lispro (Humalog Kwikpen (Bk)) 0 unit SC ACHS [facility]; Protocol Last Admin: 05/01/20 06:34 Dose: 4 units Documented by: Nicotine (Nicoderm Cq ([facility])) 21 mg TRANSDERM. DAILY [facility] Last Admin: 05/01/20 08:35 Dose: 21 mg Documented by: Nutritional Formula (Lactose Free) (Glucerna Shake) 120 ml PO 4X/DAY [facility] Last Admin: 05/01/20 08:35 Dose: Not Given Documented by: Ondansetron HCl (Zofran) 4 mg IV Q8H PRN PRN PRN Reason: NAUSEA/VOMITING Sodium Chloride () 10 - 40 ml IV UD PRN PRN Reason: SALINE FLUSH Last Admin: 05/01/20 07:33 Dose: 20 ml Documented by: Venlafaxine HCl (Effexor Xr) 75 mg PO DAILY [facility] Last Admin: 05/01/20 08:35 Dose: 75 mg Documented by: Discharge Diet: Carb Control Diet Discharge Activity: Return to Normal Activity Call your doctor if you observe: Shortness of breath, Dizziness, Fainting spells, Chest pain Home Medications: Medications to take at Discharge Metformin HCl 500 mg PO BID 04/29/20 Venlafaxine XR [Effexor Xr] 75 mg PO DAILY 04/29/20 Amlodipine [Norvasc] 10 mg PO DAILY #30 tab 05/01/20 Insulin Glargine [Lantus SoloStar Pen] 10 units SUBCUT DAILY #1 box 05/01/20 Pen Needle, Diabetic [Pen [place]] 1 ea MC BID #1 box 05/01/20 Following Prescrptions Were Given to Patient: Insulin Glargine [Lantus SoloStar Pen] 10 units SUBCUT DAILY #1 box Transmission Status: Received by [id number] Amlodipine [Norvasc] 10 mg PO DAILY #30 tab Transmission Status: Received by [id number] Pen Needle, Diabetic [Pen [place]] 1 ea MC BID #1 box Prescription Printed Other Amb Orders: Glucometer Location: None Selected Primary Care Physician: Carlos Burch MD [Primary Care Provider] - Please follow up with your Primary Care Physician in: 3-5 Days Disposition: Home Minutes spent on discharge:: 35 Patient Condition:: Stable Medical Necessity - Tobacco Use Smoking Status: Heavy Smoker (>10/day) Tobacco Use: Cigarettes Meaningful Use Info Meaningful Use Diagnoses (Choose all that apply): None applicable <[place] - Last Filed: 05/02/20 15:48> Discharge Date and Diagnosis - Secondary Discharge Diagnosis Chronic Problems: Chronic Problems Hypertension (Chronic) Metabolic syndrome (Chronic) Hospital Course and Treatment Summary of Care Provided: This patient was seen in conjunction with Amy Aldana NP. I have independently interviewed and examined the patient and reviewed pertinent historical, laboratory, and other data. Please refer to her note for patient's presentation, findings, and recommendations. 59-year-old female past medical history of hypertension, type II DM who comes in with abnormal blood work. Patient has seen a primary care doctor on 05/01/20 and her potassium was found to be low as well as and magnesium. She admits to having frequent loose stools but not diarrhea. Patient was also found to have acute kidney injury with creatinine of 1.5. She was admitted to the telemetry floor. Her electrolytes were replaced. Patient's blood sugar was uncontrolled, HbA1c was 11.5. She was started on insulin. She was counseled on her diet, and medication compliance. He has stopped taking metformin days prior to her admission. On the day of discharge, patient was seen and examined. Denied any current plans. Electrolytes are replaced. Physical Exam: Gen: Comfortable, not pale, not jaundiced, alert oriented x3 CVS:HS I +II, regular, no murmurs RESP: CTA GI: BS present and normal, nontender, no palpable organs EXT:No edema - Physical Exam Vitals/I&O's: Vital Signs Temp Pulse Resp BP Pulse Ox 98.8 F 85 14 158/54 H 97 05/01/20 08:29 05/01/20 08:29 05/01/20 08:29 05/01/20 08:29 05/01/20 08:29 Oxygen Delivery Method Room Air Weight: 83.4 kg Body Mass Index (BMI) 34.7 Intake and Output for Last 24 Hours 04/30/20 05/01/20 05/02/20 23:59 23:59 23:59 Intake Total 1740 / 1740 150 / 150 Balance 1740 / 1740 150 / 150 Microbiology Past 72 Hours 05/01/20 06:30 Stool Stool Occult Blood (SHALINI) - Final Laboratory Results 05/01/20 06:40: Vitamin B12 523 05/01/20 11:31: POC Glucose 216 H OBSV E&M: 68045 Observation care discharge
[2020-05-01] MEDS: amLODIPine 10 MG Tablet PO (11:35)
[2020-05-01 11:55] LABS: Bedside Glucose 216 mg/dL (70-110)
--- NOTE | 2020-05-01 12:18 | PHA.DC.MC ---
Pharmacy Service has performed discharge medication reconciliation and counseling for this patient. 1. AMLODIPINE 10MG PO DAILY 2. INSULIN GLARGINE 10UNITS SC DAILY The patient's discharge medication list was reviewed for discrepancies and discrepancies were resolved. Home Medications Metformin HCl 500 mg PO BID 04/29/20 Venlafaxine XR [Effexor Xr] 75 mg PO DAILY 04/29/20 Amlodipine [Norvasc] 10 mg PO DAILY #30 tab 05/01/20 Insulin Glargine [Lantus SoloStar Pen] 10 units SUBCUT DAILY #1 box 05/01/20 Pen Needle, Diabetic [Pen [place]] 1 ea MC BID #1 box 05/01/20 The patient was counseled on the following discharge medications and changes in medications for homegoing were reviewed. The Reason for Use, instructions for use, and potential side effects were reviewed for all new medications. The patient's questions regarding all of their medications were answered. The patient was able to verbally demonstrate an understanding of their discharge medications.
[2020-05-03 11:29] LABS: Vitamin D 1,25-Dihydroxy 36.7 pg/mL (19.9-79.3)
== END 2020-05-01 11:03 | disposition home or self-care (01) ==
LOC: ED 13:22 → PCU 13:36
PROVIDERS: Hospitalist; Nurse Practitioner Family; Admitting Provider Student in an Organized Health Care Education/Training Program; Emergency Provider Emergency Medicine; PCP Family Medicine; Visit Provider Internal Medicine
DX: E87.6 Hypokalemia (principal); E11.65 Type 2 diabetes mellitus with hyperglycemia; E87.1 Hypo-osmolality and hyponatremia; N18.3 Chronic kidney disease, stage 3 (moderate); I12.9 Hypertensive chronic kidney disease with stage 1 through stage 4 chronic kidney disease, or unspecified chronic kidney disease; D50.9 Iron deficiency anemia, unspecified; E11.22 Type 2 diabetes mellitus with diabetic chronic kidney disease; F32.9 Major depressive disorder, single episode, unspecified; R94.31 Abnormal electrocardiogram [ECG] [EKG]; E83.42 Hypomagnesemia; N17.9 Acute kidney failure, unspecified; F17.210 Nicotine dependence, cigarettes, uncomplicated; E88.81 Metabolic syndrome and other insulin resistance; Z79.899 Other long term (current) drug therapy; Z79.84 Long term (current) use of oral hypoglycemic drugs; E78.00 Pure hypercholesterolemia, unspecified; E04.1 Nontoxic single thyroid nodule
CPT/HCPCS: 36415; 36430; 80048; 80053; 80061; 82274; 82607; 82652; 82728; 82746; 82962; 83036; 83540; 83550; 83735; 84132; 84443; 85014; 85018; 85025; 85027; 86850; 86900; 86901; 86920; 86922; 93005; 96361; 96374; 96376; 97162; 97166; 97802; 97803; 99218; 99284; 99406; J7040; J7050; P9016; A4216; G0378; J0610

== ENCOUNTER → 2020-05-05 | Outpatient (CLI) | payer MEDICARE, SELFPAY ==
[2020-04-29 16:10] VITALS: BMI 34.7
[2020-05-05 12:26] LABS: Absolute Lymphocyte Count 1.22 X10^3/uL (0.83-4.51); Absolute Neutrophil Count 9.5 X10^3/uL (2.0-7.7); Basophil# 0.04 X10^3/uL; Basophil% 0.4 % (0-1); Eosinophil# 0.15 X10^3/uL; Eosinophils% 1.3 % (0-5); Hematocrit 29.1 % (37-47); Hemoglobin 9.1 g/dL (12.0-15.0); Lymphocyte # 1.22 X10^3/ul (4.0); Lymphocyte % 10.8 % (19-41); Mean Corp Hgb Conc 31.3 g/dL (32-36); Mean Corpuscular Hgb 26.1 pg (27.0-32.0); Mean Corpuscular Volume 83.4 fL (81-99); Mean Platelet Vol. 8.8 fl (6.2-12.0); Monocyte# 0.33 X10^3/uL; Monocyte% 2.9 % (0-10); NRBC Flagged by Analyzer 0 % (0-5); Neutrophil # 9.49 X10^3/uL (2.7-7.7); Neutrophil % 83.8 % (47-70); Platelet Count 317 K/mm3 (150-450); RBC Distribution Width CV 14.6 % (11.6-14.6); RBC Distribution Width SD 43.6 fl (35.1-43.9); Red Blood Count 3.49 M/mm3 (4.2-5.4); White Blood Count 11.3 K/mm3 (4.4-11.0)
[2020-05-05 12:46] LABS: Hemoglobin A1c 9.2 % (3.8-5.6)
[2020-05-05 12:49] LABS: ALB/GLOB Ratio 0.7 RATIO (0.9-2.4); AST(SGOT) 13 U/L (15-37); Alanine Aminotransfer ALT/SGPT 13 U/L (13-56); Albumin, Serum 2.8 g/dL (3.2-5.0); Alkaline Phosphatase 122 U/L (45-117); Anion Gap 9 (5-15); BUN 21 mg/dL (7-18); BUN/Creat Ratio 16.7 RATIO (10-20); Calcium,Total 8.5 mg/dL (8.5-10.1); Chloride 97 mmol/L (98-107); Creatinine, Serum 1.26 mg/dL (0.55-1.02); EST Glomerular Filtration Rate 44 mL/min (>60); Est Glom Filt Rate - Afr Amer 53 mL/min (>60); Globulin 3.9 g/dL (2.2-4.2); Glucose 176 mg/dL (74-106); Magnesium 1.2 mg/dL (1.6-2.6); Potassium 4.3 mmol/L (3.5-5.1); Protein, Total 6.7 g/dL (6.4-8.2); Sodium Level 133 mmol/L (136-145); Thyroid Stim Hormone (TSH) 1.82 uIU/mL (0.358-3.74)
== END | disposition home or self-care (01) ==
LOC: MFPLAB 09:55
PROVIDERS: PCP Family Medicine; Visit Provider Family Medicine
DX: E83.42 Hypomagnesemia (principal); E11.65 Type 2 diabetes mellitus with hyperglycemia; E87.6 Hypokalemia; D64.9 Anemia, unspecified
CPT/HCPCS: 36415; 80053; 83036; 83735; 84443; 85025

== ENCOUNTER → 2020-09-01 10:28 | Outpatient (CLI) | payer MEDICARE, SELFPAY ==
[2020-04-29 16:10] VITALS: BMI 34.7
[2020-09-01 12:51] LABS: Hematocrit 34.8 % (37-47); Mean Corp Hgb Conc 31.6 g/dL (32-36); Mean Corpuscular Hgb 28.9 pg (27.0-32.0); Mean Corpuscular Volume 91.3 fL (81-99); Mean Platelet Vol. 9.6 fl (6.2-12.0); Platelet Count 343 K/mm3 (150-450); RBC Distribution Width CV 13.9 % (11.6-14.6); RBC Distribution Width SD 46.5 fl (35.1-43.9); Red Blood Count 3.81 M/mm3 (4.2-5.4)
[2020-09-01 13:27] LABS: ALB/GLOB Ratio 0.8 RATIO (0.9-2.4); AST(SGOT) 10 U/L (15-37); Alanine Aminotransfer ALT/SGPT 19 U/L (13-56); Albumin, Serum 3.5 g/dL (3.2-5.0); Alkaline Phosphatase 144 U/L (45-117); Anion Gap 8 (5-15); BUN 21 mg/dL (7-18); BUN/Creat Ratio 16.7 RATIO (10-20); Calcium,Total 9.6 mg/dL (8.5-10.1); Chloride 104 mmol/L (98-107); Cholesterol 159 mg/dL (200); Creatinine, Serum 1.26 mg/dL (0.55-1.02); EST Glomerular Filtration Rate 44 mL/min (>60); Est Glom Filt Rate - Afr Amer 53 mL/min (>60); Globulin 4.4 g/dL (2.2-4.2); Glucose 144 mg/dL (74-106); High Density Lipoprotein 50 mg/dL; Potassium 4.3 mmol/L (3.5-5.1); Protein, Total 7.9 g/dL (6.4-8.2); Sodium Level 137 mmol/L (136-145); Thyroid Stim Hormone (TSH) 1.45 uIU/mL (0.358-3.74); Triglycerides 179 mg/dL; Very Low Density Lipoprotein 36 mg/dL (5-40)
[2020-09-01 14:07] LABS: Microalbumin:Creatinine Ratio 274.6 mg/g CRE (<30 mg/g CRE)
== END ==
PROVIDERS: PCP Family Medicine; Visit Provider Family Medicine
DX: J44.9 Chronic obstructive pulmonary disease, unspecified (principal); E11.65 Type 2 diabetes mellitus with hyperglycemia
CPT/HCPCS: 36415; 80053; 80061; 82043; 82570; 84443; 85027

== ENCOUNTER → 2021-02-06 09:04 | Outpatient (CLI) | payer MEDICARE, SELFPAY ==
[2020-04-29 16:10] VITALS: BMI 34.7
[2021-02-06 10:14] LABS: Absolute Lymphocyte Count 2.06 X10^3/uL (0.83-4.51); Basophil# 0.04 X10^3/uL; Basophil% 0.3 % (0-1); Eosinophil# 0.26 X10^3/uL; Eosinophils% 2.2 % (0-5); Hematocrit 34.2 % (37-47); Hemoglobin 10.9 g/dL (12.0-15.0); Lymphocyte # 2.06 X10^3/ul (4.0); Lymphocyte % 17.2 % (19-41); Mean Corp Hgb Conc 31.9 g/dL (32-36); Mean Corpuscular Hgb 27.9 pg (27.0-32.0); Mean Corpuscular Volume 87.7 fL (81-99); Mean Platelet Vol. 9.5 fl (6.2-12.0); Monocyte# 0.56 X10^3/uL; Monocyte% 4.7 % (0-10); NRBC Flagged by Analyzer 0 % (0-5); Neutrophil # 9.03 X10^3/uL (2.7-7.7); Neutrophil % 75.3 % (47-70); Platelet Count 316 K/mm3 (150-450); RBC Distribution Width SD 45.2 fl (35.1-43.9)
[2021-02-06 10:54] LABS: ALB/GLOB Ratio 0.8 RATIO (0.9-2.4); AST(SGOT) 12 U/L (15-37); Alanine Aminotransfer ALT/SGPT 18 U/L (13-56); Albumin, Serum 3.3 g/dL (3.2-5.0); Alkaline Phosphatase 132 U/L (45-117); Anion Gap 7 (5-15); BUN 24 mg/dL (7-18); BUN/Creat Ratio 19.2 RATIO (10-20); Calcium,Total 9.1 mg/dL (8.5-10.1); Chloride 100 mmol/L (98-107); Creatinine, Serum 1.25 mg/dL (0.55-1.02); EST Glomerular Filtration Rate 44 mL/min (>60); Est Glom Filt Rate - Afr Amer 53 mL/min (>60); Globulin 4.2 g/dL (2.2-4.2); Glucose 175 mg/dL (74-106); Potassium 3.8 mmol/L (3.5-5.1); Protein, Total 7.5 g/dL (6.4-8.2); Sodium Level 135 mmol/L (136-145)
== END ==
PROVIDERS: PCP Family Medicine; Referring Provider Family Medicine; Visit Provider Family Medicine
DX: I10 Essential (primary) hypertension (principal); E11.9 Type 2 diabetes mellitus without complications
CPT/HCPCS: 36415; 80053; 85025

== ENCOUNTER → 2021-02-12 11:37 | Outpatient (CLI) | payer MEDICARE, SELFPAY ==
[2020-04-29 16:10] VITALS: BMI 34.7
[2021-02-12 15:51] LABS: Microalbumin:Creatinine Ratio 259.9 mg/g CRE (<30 mg/g CRE)
== END ==
PROVIDERS: PCP Family Medicine; Referring Provider Family Medicine; Visit Provider Family Medicine
DX: I10 Essential (primary) hypertension (principal)
CPT/HCPCS: 82043; 82570

== ENCOUNTER → 2021-03-18 09:10 | Outpatient (CLI) | payer MEDICARE, SELFPAY ==
[2020-04-29 16:10] VITALS: BMI 34.7
--- NOTE | 2021-03-18 09:16 | BI_ITS ---
MAMMOGRAPHY - BILATERAL SCREENING REASON FOR EXAM: Female, 80 years old. Routine annual screening examination. PERTINENT HISTORY: Non-contributory. There are multiple right excisional breast biopsy. TECHNIQUE: Digital bilateral breast racquel (3D mammographic acquisition) in the CC and MLO projections. 2-D mediolateral oblique (MLO) and craniocaudad (CC) views of both breasts were obtained. CAD: Full Field Digital Mammography with Computer Added Detection was performed. COMPARISON: Comparison is made with prior study dated 07/27/2018. FINDINGS: Breast Composition: There are scattered areas of fibroglandular density. There are no dominant masses or suspicious calcifications. No other significant abnormalities are identified. There has been no significant change since the prior study. BI/SCRN MAMM (CAD)W/RACQUEL BILAT IMPRESSION: Stable bilateral screening mammogram. Yearly follow-up mammogram recommended. (A) ASSESSMENT CATEGORY: BIRADS Category 1: Negative. A letter regarding these results will be sent to the patient by the facility within 30 days. Approximately 10% of breast cancers are not detected by mammography. A normal mammogram should not delay biopsy of a clinically suspicious abnormality. [id number] Electronically Signed: Damian Tracy MD at 10:25 EDT , Service support ,
--- NOTE | 2021-03-18 09:22 | BD_ITS ---
STUDY: DUAL ENERGY X-RAY ABSORPTIOMETRY / DXA REASON FOR EXAM: Female, 80 years old. 733.00OsteoporosisBONE DENSITY REASON FOR EXAM TECHNIQUE: Bone Mineral Density (BMD) measurements of lumbar spine and bilateral hips were obtained. COMPARISON: None. FINDINGS: Lumbar Spine (L1-L4): g/cm2 (1.712) / T-score (4.3) / Z-score (6.1) Findings are suggestive of normal bone density with a low fracture risk. Left Femur Total: g/cm2 (1.047) / T-score (0.3) / Z-score (2.3) Left Femoral Neck: g/cm2 (0.869) / T-score (-1.2) / Z-score (0.9) Right Femur Total: g/cm2 (0.965) / T-score (-0.3) / Z-score (1.6) Right Femoral Neck: g/cm2 (0.815) / T-score (-1.6) / Z-score (0.5) BD/Dexa Bone Density Study IMPRESSION: The patient is considered osteopenic as outlined below according to World [place] Organization (WHO) criteria with a moderate fracture risk. Reference Information: The T-score is the number of standard deviations above or below the standard which is normal for young adults at their peak bone mineral density. The World Health Organization (WHO) interprets the T-scores as follows: Above -1 Normal bone density Between -1 and -2.5 Osteopenia Equal to / or below -2.5 Osteoporosis As a practical clinical guideline, osteopenia may be graded as follows: Mild -1 through -1.5 Moderate -1.6 through -2.0 Severe -2.1 through -2.4 The Z-score is the number of standard deviations above or below age-matched controls. A Z-score of less than -1.5 would be considered abnormal. References: 1. NIH Osteoporosis and Related Bone Diseases www osteo.org 2. International Society for Clinical Densitometry www iscd.org 3. National Osteoporosis Foundation www nof.org Electronically Signed: Damian Tracy MD at 14:09 EDT , Service support ,
== END ==
PROVIDERS: PCP Family Medicine; Referring Provider Nurse Practitioner Family; Visit Provider Nurse Practitioner Family
DX: Z78.0 Asymptomatic menopausal state (principal); Z12.31 Encounter for screening mammogram for malignant neoplasm of breast; Z13.820 Encounter for screening for osteoporosis
CPT/HCPCS: 77063; 77067; 77080

== ENCOUNTER → 2021-10-22 08:47 | Outpatient (CLI) | payer MEDICARE, SELFPAY ==
[2021-10-22 10:19] LABS: Absolute Lymphocyte Count 1.64 X10^3/uL (0.83-4.51); Absolute Neutrophil Count 8.7 X10^3/uL (2.0-7.7); Basophil# 0.04 X10^3/uL; Basophil% 0.4 % (0-1); Eosinophils% 1.8 % (0-5); Hematocrit 31.9 % (37-47); Hemoglobin 10.3 g/dL (12.0-15.0); Lymphocyte # 1.64 X10^3/ul (0.83-4.51); Lymphocyte % 14.9 % (19-41); Mean Corp Hgb Conc 32.3 g/dL (32-36); Mean Corpuscular Hgb 27.5 pg (27.0-32.0); Mean Corpuscular Volume 85.1 fL (81-99); Mean Platelet Vol. 9.7 fl (6.2-12.0); Monocyte# 0.47 X10^3/uL; Monocyte% 4.3 % (0-10); NRBC Flagged by Analyzer 0 % (0-5); Neutrophil # 8.65 X10^3/uL (2.7-7.7); Neutrophil % 78.2 % (47-70); Platelet Count 288 K/mm3 (150-450); RBC Distribution Width CV 14.6 % (11.6-14.6); RBC Distribution Width SD 44.7 fl (35.1-43.9); Red Blood Count 3.75 M/mm3 (4.2-5.4)
[2021-10-22 10:38] LABS: Cholesterol 197 mg/dL (200); High Density Lipoprotein 57 mg/dL; Triglycerides 159 mg/dL; Very Low Density Lipoprotein 32 mg/dL (5-40)
[2021-10-22 10:46] LABS: Hemoglobin A1c 6.9 % (3.8-5.6)
[2021-10-22 10:50] LABS: ALB/GLOB Ratio 0.7 RATIO (0.9-2.4); AST(SGOT) 9 U/L (15-37); Alanine Aminotransfer ALT/SGPT 18 U/L (13-56); Alkaline Phosphatase 135 U/L (45-117); Anion Gap 7 (5-15); BUN 25 mg/dL (7-18); Calcium,Total 9.2 mg/dL (8.5-10.1); Chloride 107 mmol/L (98-107); Creatinine, Serum 1.39 mg/dL (0.55-1.02); EST Glomerular Filtration Rate 39 mL/min (>60); Est Glom Filt Rate - Afr Amer 47 mL/min (>60); Globulin 4.6 g/dL (2.2-4.2); Glucose 185 mg/dL (74-106); Potassium 4.5 mmol/L (3.5-5.1); Protein, Total 7.6 g/dL (6.4-8.2); Sodium Level 137 mmol/L (136-145); Thyroid Stim Hormone (TSH) 1.61 uIU/mL (0.358-3.74)
== END ==
PROVIDERS: Family Medicine; PCP Family Medicine; Referring Provider Family Medicine; Visit Provider Family Medicine
DX: M48.061 Spinal stenosis, lumbar region without neurogenic claudication (principal); E78.00 Pure hypercholesterolemia, unspecified; E11.22 Type 2 diabetes mellitus with diabetic chronic kidney disease; N18.9 Chronic kidney disease, unspecified
CPT/HCPCS: 36415; 80053; 80061; 83036; 84443; 85025

== ENCOUNTER → 2022-04-12 | Outpatient (CLI) | payer MEDICARE, SELFPAY ==
[2022-04-12 12:38] LABS: Absolute Lymphocyte Count 1.31 X10^3/uL (0.83-4.51); Absolute Neutrophil Count 10.1 X10^3/uL (2.0-7.7); Basophil# 0.04 X10^3/uL; Basophil% 0.3 % (0-1); Eosinophil# 0.17 X10^3/uL; Eosinophils% 1.4 % (0-5); Hematocrit 34.7 % (37-47); Hemoglobin 10.6 g/dL (12.0-15.0); Lymphocyte # 1.31 X10^3/ul (0.83-4.51); Lymphocyte % 10.8 % (19-41); Mean Corp Hgb Conc 30.5 g/dL (32-36); Mean Corpuscular Hgb 25.7 pg (27.0-32.0); Mean Platelet Vol. 9.5 fl (6.2-12.0); Monocyte# 0.48 X10^3/uL; Monocyte% 3.9 % (0-10); NRBC Flagged by Analyzer 0 % (0-5); Neutrophil # 10.11 X10^3/uL (2.7-7.7); Platelet Count 315 K/mm3 (150-450); RBC Distribution Width CV 15.6 % (11.6-14.6); RBC Distribution Width SD 47.1 fl (35.1-43.9); Red Blood Count 4.13 M/mm3 (4.2-5.4); White Blood Count 12.2 K/mm3 (4.4-11.0)
[2022-04-12 13:26] LABS: ALB/GLOB Ratio 0.9 RATIO (0.9-2.4); AST(SGOT) 12 U/L (15-37); Alanine Aminotransfer ALT/SGPT 21 U/L (13-56); Albumin, Serum 3.4 g/dL (3.2-5.0); Alkaline Phosphatase 154 U/L (45-117); Anion Gap 11 (5-15); BUN 23 mg/dL (7-18); Calcium,Total 9.1 mg/dL (8.5-10.1); Chloride 103 mmol/L (98-107); Creatinine, Serum 1.44 mg/dL (0.55-1.02); EST Glomerular Filtration Rate 37 mL/min (>60); Est Glom Filt Rate - Afr Amer 45 mL/min (>60); Globulin 3.9 g/dL (2.2-4.2); Glucose 223 mg/dL (74-106); Magnesium 2.4 mg/dL (1.6-2.6); Potassium 4.3 mmol/L (3.5-5.1); Protein, Total 7.3 g/dL (6.4-8.2); Sodium Level 137 mmol/L (136-145)
== END | disposition home or self-care (01) ==
LOC: MFPLAB 09:36
PROVIDERS: PCP Family Medicine; Visit Provider Family Medicine
DX: J44.9 Chronic obstructive pulmonary disease, unspecified (principal); E11.22 Type 2 diabetes mellitus with diabetic chronic kidney disease; N18.9 Chronic kidney disease, unspecified; I12.9 Hypertensive chronic kidney disease with stage 1 through stage 4 chronic kidney disease, or unspecified chronic kidney disease
CPT/HCPCS: 36415; 80053; 83735; 85025

== ENCOUNTER → 2022-05-31 | Outpatient (CLI) | payer MEDICARE, SELFPAY ==
[2022-05-31 12:36] LABS: Anion Gap 9 (5-15); BUN 22 mg/dL (7-18); BUN/Creat Ratio 15.2 RATIO (10-20); Calcium,Total 9.6 mg/dL (8.5-10.1); Chloride 104 mmol/L (98-107); Creatinine, Serum 1.45 mg/dL (0.55-1.02); EST Glomerular Filtration Rate 37 mL/min (>60); Est Glom Filt Rate - Afr Amer 45 mL/min (>60); Glucose 187 mg/dL (74-106); Potassium 5.1 mmol/L (3.5-5.1); Sodium Level 139 mmol/L (136-145)
== END | disposition home or self-care (01) ==
LOC: MFPLAB 10:20
PROVIDERS: PCP Family Medicine; Visit Provider Family Medicine
DX: N18.32 Chronic kidney disease, stage 3b (principal)
CPT/HCPCS: 36415; 80048

== ENCOUNTER → 2022-06-17 | Outpatient (CLI) | payer MEDICARE, SELFPAY ==
--- NOTE | 2022-06-17 07:59 | BI_ITS ---
MAMMOGRAPHY - BILATERAL SCREENING REASON FOR EXAM: Female, 81 years old. Routine annual screening examination. PERTINENT HISTORY: Non-contributory. Prior right excisional breast biopsy. TECHNIQUE: Digital bilateral breast racquel (3D mammographic acquisition) in the CC and MLO projections. 2-D mediolateral oblique (MLO) and craniocaudad (CC) views of both breasts were obtained. CAD: Full Field Digital Mammography with Computer Added Detection was performed. COMPARISON: Comparison is made with prior study dated 03/18/2021 and 07/27/2018. FINDINGS: Breast Composition: There are scattered areas of fibroglandular density. There are no dominant masses or suspicious calcifications. Stable small benign-appearing bilateral axillary lymph nodes. No other significant abnormalities are identified. There has been no significant change since the prior study. BI/SCRN MAMM (CAD)W/RACQUEL BILAT IMPRESSION: Stable bilateral screening mammogram. Yearly follow-up mammogram recommended. (A) ASSESSMENT CATEGORY: BIRADS Category 2: Benign. A letter regarding these results will be sent to the patient by the facility within 30 days. Approximately 10% of breast cancers are not detected by mammography. A normal mammogram should not delay biopsy of a clinically suspicious abnormality. [id number] Electronically Signed: Damian Tracy MD at 9:00 EDT ,
== END | disposition home or self-care (01) ==
LOC: OPBI 07:57
PROVIDERS: PCP Family Medicine; Visit Provider Family Medicine
DX: Z12.31 Encounter for screening mammogram for malignant neoplasm of breast (principal)
CPT/HCPCS: 77063; 77067

== ENCOUNTER → 2022-09-02 | Outpatient (CLI) | payer MEDICARE, SELFPAY ==
[2022-09-02 12:42] LABS: ALB/GLOB Ratio 0.7 RATIO (0.9-2.4); AST(SGOT) 15 U/L (15-37); Alanine Aminotransfer ALT/SGPT 21 U/L (13-56); Albumin, Serum 3.1 g/dL (3.2-5.0); Alkaline Phosphatase 126 U/L (45-117); Anion Gap 7 (5-15); BUN 22 mg/dL (7-18); Calcium,Total 9.1 mg/dL (8.5-10.1); Chloride 104 mmol/L (98-107); Creatinine, Serum 1.57 mg/dL (0.55-1.02); EST Glomerular Filtration Rate 34 mL/min (>60); Est Glom Filt Rate - Afr Amer 41 mL/min (>60); Globulin 4.6 g/dL (2.2-4.2); Glucose 132 mg/dL (74-106); Potassium 4.9 mmol/L (3.5-5.1); Protein, Total 7.7 g/dL (6.4-8.2); Sodium Level 135 mmol/L (136-145)
[2022-09-02 13:26] LABS: Hemoglobin A1c 6.6 % (3.8-5.6)
== END | disposition home or self-care (01) ==
LOC: MFPLAB 10:22
PROVIDERS: PCP Family Medicine; Referring Provider Family Medicine; Visit Provider Family Medicine
DX: E11.22 Type 2 diabetes mellitus with diabetic chronic kidney disease (principal); N18.9 Chronic kidney disease, unspecified
CPT/HCPCS: 36415; 80053; 83036

== ENCOUNTER 2023-06-02 16:06 | Outpatient (CLI) | payer MEDICARE, SELFPAY ==
[2023-06-02 17:39] LABS: Absolute Lymphocyte Count 1.73 X10^3/uL (0.83-4.51); Absolute Neutrophil Count 9.7 X10^3/uL (2.0-7.7); Basophil# 0.06 X10^3/uL; Basophil% 0.5 % (0-1); Eosinophil# 0.18 X10^3/uL; Eosinophils% 1.5 % (0-5); Hemoglobin 10.4 g/dL (12.0-15.0); Lymphocyte # 1.73 X10^3/ul (0.83-4.51); Lymphocyte % 14.1 % (19-41); Mean Corp Hgb Conc 30.6 g/dL (32-36); Mean Corpuscular Hgb 26.7 pg (27.0-32.0); Mean Corpuscular Volume 87.4 fL (81-99); Mean Platelet Vol. 9.1 fl (6.2-12.0); Monocyte# 0.56 X10^3/uL; Monocyte% 4.5 % (0-10); NRBC Flagged by Analyzer 0 % (0-5); Neutrophil % 78.8 % (47-70); Platelet Count 302 K/mm3 (150-450); RBC Distribution Width CV 15.2 % (11.6-14.6); RBC Distribution Width SD 48.8 fl (35.1-43.9); Red Blood Count 3.89 M/mm3 (4.2-5.4); White Blood Count 12.3 K/mm3 (4.4-11.0)
[2023-06-02 18:05] LABS: Vitamin D,25 Hydroxy 30.9 ng/mL
[2023-06-02 18:15] LABS: ALB/GLOB Ratio 0.7 RATIO (0.9-2.4); AST(SGOT) 14 U/L (15-37); Alanine Aminotransfer ALT/SGPT 22 U/L (13-56); Albumin, Serum 3.1 g/dL (3.2-5.0); Alkaline Phosphatase 134 U/L (45-117); Anion Gap 9 (5-15); BUN 21 mg/dL (7-18); BUN/Creat Ratio 13.9 RATIO (10-20); Chloride 101 mmol/L (98-107); Creatinine, Serum 1.51 mg/dL (0.55-1.02); EST Glomerular Filtration Rate 35 mL/min (>60); Est Glom Filt Rate - Afr Amer 43 mL/min (>60); Globulin 4.4 g/dL (2.2-4.2); Glucose 172 mg/dL (74-106); Potassium 3.7 mmol/L (3.5-5.1); Protein, Total 7.5 g/dL (6.4-8.2); Sodium Level 133 mmol/L (136-145)
[2023-06-04 04:07] LABS: Fructosamine 301 umol/L (0-285)
[2023-06-07 15:12] LABS: Hemoglobin A1c 9.2 % (3.8-5.6)
== END 2023-06-02 23:59 | disposition home or self-care (01) ==
LOC: MFPLAB 16:07
PROVIDERS: PCP Family Medicine; Visit Provider Family Medicine
DX: J44.9 Chronic obstructive pulmonary disease, unspecified (principal); E11.22 Type 2 diabetes mellitus with diabetic chronic kidney disease; N18.32 Chronic kidney disease, stage 3b; I12.9 Hypertensive chronic kidney disease with stage 1 through stage 4 chronic kidney disease, or unspecified chronic kidney disease
CPT/HCPCS: 36415; 80053; 82306; 82985; 83036; 85025

== ENCOUNTER → 2023-09-02 | Outpatient (CLI) | payer MEDICARE, SELFPAY ==
[2023-09-02 10:02] LABS: Absolute Lymphocyte Count 1.19 X10^3/uL (0.83-4.51); Absolute Neutrophil Count 9.7 X10^3/uL (2.0-7.7); Basophil# 0.04 X10^3/uL; Basophil% 0.3 % (0-1); Eosinophil# 0.19 X10^3/uL; Eosinophils% 1.6 % (0-5); Hematocrit 36.5 % (37-47); Hemoglobin 11.2 g/dL (12.0-15.0); Lymphocyte # 1.19 X10^3/ul (0.83-4.51); Lymphocyte % 10.3 % (19-41); Mean Corp Hgb Conc 30.7 g/dL (32-36); Mean Corpuscular Hgb 26.5 pg (27.0-32.0); Mean Corpuscular Volume 86.3 fL (81-99); Mean Platelet Vol. 9.6 fl (6.2-12.0); Monocyte# 0.42 X10^3/uL; Monocyte% 3.6 % (0-10); NRBC Flagged by Analyzer 0 % (0-5); Neutrophil # 9.66 X10^3/uL (2.7-7.7); Neutrophil % 83.8 % (47-70); Platelet Count 331 K/mm3 (150-450); RBC Distribution Width CV 15.5 % (11.6-14.6); RBC Distribution Width SD 48.7 fl (35.1-43.9); Red Blood Count 4.23 M/mm3 (4.2-5.4); White Blood Count 11.6 K/mm3 (4.4-11.0)
[2023-09-02 10:19] LABS: Microalbumin:Creatinine Ratio 163.2 mg/g CRE (<30 mg/g CRE)
[2023-09-02 10:25] LABS: PTHIN 47.7 pg/mL (18.4-80.1)
[2023-09-02 10:27] LABS: ALB/GLOB Ratio 0.8 RATIO (0.9-2.4); AST(SGOT) 6 U/L (15-37); Alanine Aminotransfer ALT/SGPT 22 U/L (13-56); Albumin, Serum 3.4 g/dL (3.2-5.0); Alkaline Phosphatase 105 U/L (45-117); Anion Gap 5 (5-15); BUN 39 mg/dL (7-18); BUN/Creat Ratio 23.4 RATIO (10-20); Calcium,Total 9.8 mg/dL (8.5-10.1); Chloride 104 mmol/L (98-107); Cholesterol 146 mg/dL (200); Creatinine, Serum 1.67 mg/dL (0.55-1.02); EST Glomerular Filtration Rate 31 mL/min (>60); Est Glom Filt Rate - Afr Amer 38 mL/min (>60); Globulin 4.5 g/dL (2.2-4.2); Glucose 145 mg/dL (74-106); High Density Lipoprotein 50 mg/dL; Potassium 4.9 mmol/L (3.5-5.1); Protein, Total 7.9 g/dL (6.4-8.2); Sodium Level 133 mmol/L (136-145); Triglycerides 137 mg/dL; Very Low Density Lipoprotein 27 mg/dL (5-40)
== END | disposition home or self-care (01) ==
LOC: MFPLAB 08:56
PROVIDERS: PCP Family Medicine; Visit Provider Family Medicine
DX: E11.22 Type 2 diabetes mellitus with diabetic chronic kidney disease (principal); N18.32 Chronic kidney disease, stage 3b
CPT/HCPCS: 36415; 80053; 80061; 82043; 82570; 83970; 85025

== ENCOUNTER → 2024-02-28 | Outpatient (CLI) | payer MEDICARE, SELFPAY ==
[2024-02-28 09:52] LABS: Absolute Neutrophil Count 8.4 X10^3/uL (2.0-7.7); Basophil# 0.05 X10^3/uL; Basophil% 0.5 % (0-1); Eosinophil# 0.17 X10^3/uL; Eosinophils% 1.6 % (0-5); Hematocrit 40.5 % (37-47); Lymphocyte % 11.6 % (19-41); Mean Corp Hgb Conc 32.1 g/dL (32-36); Mean Corpuscular Volume 84.2 fL (81-99); Mean Platelet Vol. 9.4 fl (6.2-12.0); Monocyte# 0.46 X10^3/uL; Monocyte% 4.4 % (0-10); NRBC Flagged by Analyzer 0 % (0-5); Neutrophil # 8.44 X10^3/uL (2.7-7.7); Neutrophil % 81.5 % (47-70); Platelet Count 261 K/mm3 (150-450); RBC Distribution Width CV 15.9 % (11.6-14.6); RBC Distribution Width SD 48.5 fl (35.1-43.9); Red Blood Count 4.81 M/mm3 (4.2-5.4); White Blood Count 10.4 K/mm3 (4.4-11.0)
[2024-02-28 10:12] LABS: Vitamin D,25 Hydroxy 32.8 ng/mL
[2024-02-28 14:18] LABS: ALB/GLOB Ratio 0.9 RATIO (0.9-2.4); AST(SGOT) 11 U/L (15-37); Alanine Aminotransfer ALT/SGPT 20 U/L (13-56); Albumin, Serum 3.7 g/dL (3.2-5.0); Alkaline Phosphatase 117 U/L (45-117); Anion Gap 6 (5-15); BUN 42 mg/dL (7-18); BUN/Creat Ratio 27.6 RATIO (10-20); Calcium,Total 9.4 mg/dL (8.5-10.1); Chloride 108 mmol/L (98-107); Cholesterol 168 mg/dL (200); Creatinine, Serum 1.52 mg/dL (0.55-1.02); EST Glomerular Filtration Rate 35 mL/min (>60); Est Glom Filt Rate - Afr Amer 42 mL/min (>60); Globulin 4.2 g/dL (2.2-4.2); Glucose 139 mg/dL (74-106); High Density Lipoprotein 64 mg/dL; Potassium 4.4 mmol/L (3.5-5.1); Protein, Total 7.9 g/dL (6.4-8.2); Sodium Level 139 mmol/L (136-145); Triglycerides 101 mg/dL; Very Low Density Lipoprotein 20 mg/dL (5-40)
== END | disposition home or self-care (01) ==
LOC: MFPLAB 08:39
PROVIDERS: PCP Family Medicine; Visit Provider Family Medicine
DX: E11.22 Type 2 diabetes mellitus with diabetic chronic kidney disease (principal); N18.32 Chronic kidney disease, stage 3b
CPT/HCPCS: 36415; 80053; 80061; 82306; 85025

== ENCOUNTER → 2024-08-16 | Outpatient (CLI) | payer MEDICARE, SELFPAY ==
[2024-08-16 12:28] LABS: Absolute Neutrophil Count 7.4 X10^3/uL (2.0-7.7); Basophil# 0.05 X10^3/uL; Basophil% 0.5 % (0-1); Eosinophil# 0.19 X10^3/uL; Hematocrit 39.4 % (37-47); Hemoglobin 12.4 g/dL (12.0-15.0); Lymphocyte % 14.7 % (19-41); Mean Corp Hgb Conc 31.5 g/dL (32-36); Mean Corpuscular Hgb 27.4 pg (27.0-32.0); Mean Corpuscular Volume 87.2 fL (81-99); Mean Platelet Vol. 9.6 fl (6.2-12.0); Monocyte# 0.46 X10^3/uL; Monocyte% 4.8 % (0-10); NRBC Flagged by Analyzer 0 % (0-5); Neutrophil # 7.41 X10^3/uL (2.7-7.7); Neutrophil % 77.7 % (47-70); Platelet Count 248 K/mm3 (150-450); RBC Distribution Width CV 15.2 % (11.6-14.6); RBC Distribution Width SD 48.2 fl (35.1-43.9); Red Blood Count 4.52 M/mm3 (4.2-5.4); White Blood Count 9.5 K/mm3 (4.4-11.0)
[2024-08-16 13:03] LABS: Hemoglobin A1c 6.4 % (3.8-5.6)
== END | disposition home or self-care (01) ==
LOC: MFPLAB 09:55
PROVIDERS: PCP Family Medicine; Visit Provider Family Medicine
DX: E11.22 Type 2 diabetes mellitus with diabetic chronic kidney disease (principal); N18.32 Chronic kidney disease, stage 3b
CPT/HCPCS: 36415; 83036; 85025

== ENCOUNTER → 2024-08-31 | Outpatient (CLI) | payer MEDICARE, SELFPAY ==
--- NOTE | 2024-08-31 11:09 | BI_ITS ---
MAMMOGRAPHY - BILATERAL SCREENING 3-D TOMOSYNTHESIS REASON FOR EXAM: Female, 83 years old. low risk screening PERTINENT HISTORY: No significant family history. TECHNIQUE: 2-D mammograms and 3-D Tomosynthesis of the breast (s) were performed. CAD was performed. COMPARISON: 06/17/2022 FINDINGS: The breast composition is composed of scattered fibroglandular density. Scattered benign calcifications are seen. No dense spiculated masses or suspicious microcalcifications are identified. No architectural distortion is identified. There is no skin thickening or retraction. There has been no significant change since the prior study. BI/SCRN MAMM (CAD)W/RACQUEL BILAT IMPRESSION: No mammographic signs of malignancy. Routine yearly mammograms recommended. ASSESSMENT CATEGORY: BIRADS Category 1: Negative. A letter regarding these results will be sent to the patient by the facility within 30 days. FOLLOW UP RECOMMENDATION: Yearly follow up mammogram recommended. (A) Approximately 10% of breast cancers are not detected by mammography. A normal mammogram should not delay biopsy of a clinically suspicious abnormality. Electronically Signed: Praveen Herr MD at 12:46 EDT ,
--- NOTE | 2024-08-31 11:34 | BD_ITS ---
STUDY: DUAL ENERGY X-RAY ABSORPTIOMETRY / DXA REASON FOR EXAM: Female, 83 years old. 733.00OsteoporosisBONE DENSITY REASON FOR EXAM TECHNIQUE: Bone Mineral Density (BMD) measurements of lumbar spine and bilateral hips were obtained. COMPARISON: 03/18/2021 FINDINGS: Lumbar Spine (L1-L4): g/cm2 (1.345) / T-score (2.7) / Z-score (5.5) Findings are suggestive of normal bone density with a low fracture risk. Left Femur Total: g/cm2 (0.943) / T-score (0.0) / Z-score (0.2) Left Femoral Neck: g/cm2 (0.588) / T-score (-2.3) / Z-score (0.1) Right Femur Total: g/cm2 (0.924) / T-score (-0.1) / Z-score (2.1) Right Femoral Neck: g/cm2 (0.540) / T-score (-2.8) / Z-score (-0.4) BD/Dexa Bone Density Study IMPRESSION: The patient is considered osteoporotic as outlined below according to World [place] Organization (WHO) criteria with a high fracture risk. There has been no change of bone density since the previous examination. Reference Information: The T-score is the number of standard deviations above or below the standard which is normal for young adults at their peak bone mineral density. The World Health Organization (WHO) interprets the T-scores as follows: Above -1 Normal bone density Between -1 and -2.5 Osteopenia Equal to / or below -2.5 Osteoporosis As a practical clinical guideline, osteopenia may be graded as follows: Mild -1 through -1.5 Moderate -1.6 through -2.0 Severe -2.1 through -2.4 The Z-score is the number of standard deviations above or below age-matched controls. A Z-score of less than -1.5 would be considered abnormal. References: 1. NIH Osteoporosis and Related Bone Diseases www osteo.org 2. International Society for Clinical Densitometry www iscd.org 3. National Osteoporosis Foundation www nof.org Electronically Signed: Praveen Herr MD at 21:43 EDT ,
== END | disposition home or self-care (01) ==
LOC: OPBD 11:09
PROVIDERS: PCP Family Medicine; Referring Provider Family Medicine; Visit Provider Family Medicine
DX: Z12.31 Encounter for screening mammogram for malignant neoplasm of breast (principal); M85.851 Other specified disorders of bone density and structure, right thigh
CPT/HCPCS: 77063; 77067; 77080

== ENCOUNTER → 2024-09-05 | Outpatient (CLI) | payer MEDICARE, SELFPAY ==
--- NOTE | 2024-09-05 16:44 | CT_ITS ---
HISTORY: active tobacco use, greater than 30 pack years. TECHNIQUE: Helically acquired images were obtained of the chest without contrast. A radiation dose optimization technique was used for this scan. 817 images. COMPARISON: None. FINDINGS: LARGE AIRWAYS: Patent. LUNGS: Mild emphysema. 3 mm groundglass and noncalcified right upper lobe nodules. Small branching calcifications in the right lower lobe. 3 mm noncalcified right lower lobe nodule. 3 mm calcified granulomas in the left upper lobe, lingular, and left lower lobe. 2 mm pleural-based left upper lobe nodules. 3 mm pleural-based left lower lobe nodule. PLEURA: No pneumothorax or significant pleural effusion. HEART/PERICARDIUM: Heart within normal limits in size with coronary artery calcification. No pericardial effusion. VESSELS: Thoracic aorta nondilated. Mild atherosclerosis. MEDIASTINUM/YANIRA: No pathologically enlarged adenopathy. Small calcified lymph nodes. UPPER ABDOMEN: Cholecystectomy. BONES: Degenerative change and scoliosis. CT/Low Dose CT Lung Screening IMPRESSION: Mild emphysema with pulmonary nodules measuring up to 3 mm. Lung-RADS category 2: Continue annual screening with low dose CT. Electronically Signed: Kavya Jernigan MD at 8:21 EDT ,
== END | disposition home or self-care (01) ==
LOC: CT 16:42
PROVIDERS: PCP Family Medicine; Referring Provider Family Medicine; Visit Provider Family Medicine
DX: Z12.2 Encounter for screening for malignant neoplasm of respiratory organs (principal); F17.210 Nicotine dependence, cigarettes, uncomplicated
CPT/HCPCS: 71271

== ENCOUNTER → 2025-02-22 | Outpatient (CLI) | payer MEDICARE, SELFPAY ==
[2025-02-22 10:44] LABS: Absolute Lymphocyte Count 1.32 X10^3/uL (0.83-4.51); Absolute Neutrophil Count 10.8 X10^3/uL (2.0-7.7); Basophil# 0.05 X10^3/uL; Basophil% 0.4 % (0-1); Eosinophil# 0.18 X10^3/uL; Eosinophils% 1.4 % (0-5); Hematocrit 36.9 % (37-47); Hemoglobin 11.7 g/dL (12.0-15.0); Lymphocyte # 1.32 X10^3/ul (0.83-4.51); Lymphocyte % 10.1 % (19-41); Mean Corp Hgb Conc 31.7 g/dL (32-36); Mean Corpuscular Hgb 27.5 pg (27.0-32.0); Mean Corpuscular Volume 86.8 fL (81-99); Mean Platelet Vol. 9.7 fl (6.2-12.0); Monocyte# 0.63 X10^3/uL; Monocyte% 4.8 % (0-10); NRBC Flagged by Analyzer 0 % (0-5); Neutrophil # 10.81 X10^3/uL (2.7-7.7); Neutrophil % 82.8 % (47-70); Platelet Count 264 K/mm3 (150-450); RBC Distribution Width CV 15.6 % (11.6-14.6); RBC Distribution Width SD 48.6 fl (35.1-43.9); Red Blood Count 4.25 M/mm3 (4.2-5.4); White Blood Count 13.1 K/mm3 (4.4-11.0)
[2025-02-22 11:51] LABS: ALB/GLOB Ratio 1.1 RATIO (0.9-2.4); AST(SGOT) 15 U/L (<=31); Alanine Aminotransfer ALT/SGPT 17 U/L (<=34); Albumin, Serum 3.8 g/dL (3.4-4.8); Alkaline Phosphatase 113 U/L (35-104); Anion Gap 13 (5-15); BUN 34 mg/dL (4-19); BUN/Creat Ratio 23.3 RATIO (10-20); Calcium,Total 9.5 mg/dL (7.6-11.0); Carbon Dioxide 21.5 mmol/L (21.0-32.0); Chloride 102 mmol/L (98-108); Cholesterol 193 mg/dL (<=200); Creatinine, Serum 1.44 mg/dL (0.70-1.20); EST Glomerular Filtration Rate 36 (>60); Globulin 3.6 g/dL (2.2-4.2); Glucose 167 mg/dL (70-99); High Density Lipoprotein 60 mg/dL; Low Density Lipoprotein Calc. 98 mg/dL; Potassium 4.8 mmol/L (3.3-5.1); Protein, Total 7.4 g/dL (5.9-8.4); Sodium Level 136 mmol/L (133-145); Total Bilirubin 0.27 mg/dL (0.00-1.30); Triglycerides 176 mg/dL; Very Low Density Lipoprotein 35 mg/dL (5-40); cholesterol:hdl ratio screen 3.24
[2025-02-22 12:15] LABS: Microalbumin:Creatinine Ratio 9267.5 mg/g CRE
== END | disposition home or self-care (01) ==
LOC: MFPLAB 08:38
PROVIDERS: PCP Family Medicine; Referring Provider Family Medicine; Visit Provider Family Medicine
DX: E11.22 Type 2 diabetes mellitus with diabetic chronic kidney disease (principal); N18.32 Chronic kidney disease, stage 3b
CPT/HCPCS: 36415; 80053; 80061; 82043; 82570; 85025

== ENCOUNTER → 2025-09-13 | Outpatient (CLI) | payer MEDICARE, SELFPAY | END | disposition home or self-care (01) | LOC: OPBI 12:22 | PROVIDERS: PCP Family Medicine; Referring Provider Nurse Practitioner Family; Visit Provider Nurse Practitioner Family | DX: Z12.31 Encounter for screening mammogram for malignant neoplasm of breast (principal) | CPT/HCPCS: 77067 ==